=== PATIENT | female | born 1975 | race Caucasian/White ===

== ENCOUNTER 2017-01-24 12:05 | Emergency (ER) | payer MEDICARE, MEDICAID ==
[2017-01-24 12:25] VITALS: BP 143/102
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
== END 2017-01-24 16:35 | disposition home or self-care (01) ==
LOC: JP.ED 12:05
DX: F31.9 Bipolar disorder, unspecified (principal); F41.9 Anxiety disorder, unspecified; F19.10 Other psychoactive substance abuse, uncomplicated; I10 Essential (primary) hypertension; J45.909 Unspecified asthma, uncomplicated; J44.9 Chronic obstructive pulmonary disease, unspecified; F17.210 Nicotine dependence, cigarettes, uncomplicated; Z88.1 Allergy status to other antibiotic agents; Z88.8 Allergy status to other drugs, medicaments and biological substances; Z88.2 Allergy status to sulfonamides; Z88.5 Allergy status to narcotic agent; Z79.899 Other long term (current) drug therapy; Z90.49 Acquired absence of other specified parts of digestive tract; Z98.890 Other specified postprocedural states
CPT/HCPCS: 99283; 99284

== ENCOUNTER 2017-02-16 13:15 | Emergency (ER) | payer MEDICARE, MEDICAID ==
[2017-02-16 13:43] VITALS: BP 146/94
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
--- NOTE | 2017-02-17 09:23 | CR ---
Chest 2V FINDINGS: The heart and vascular structures are normal in appearance. No infiltrates or effusions ar e demonstrated. The skeletal structures are unremarkable. IMPRESSION: Negative exam.
== END 2017-02-16 15:22 | disposition home or self-care (01) ==
LOC: JP.ED 13:15
DX: J40 Bronchitis, not specified as acute or chronic (principal); R11.2 Nausea with vomiting, unspecified; I10 Essential (primary) hypertension; J44.9 Chronic obstructive pulmonary disease, unspecified; F41.9 Anxiety disorder, unspecified; F32.9 Major depressive disorder, single episode, unspecified; F17.210 Nicotine dependence, cigarettes, uncomplicated; Z98.890 Other specified postprocedural states; Z90.49 Acquired absence of other specified parts of digestive tract; Z79.899 Other long term (current) drug therapy; Z88.2 Allergy status to sulfonamides; Z88.1 Allergy status to other antibiotic agents; Z88.8 Allergy status to other drugs, medicaments and biological substances
CPT/HCPCS: 36415; 71020; 71020-26; 80048; 85025; 87804; 99283; 99284

== ENCOUNTER 2017-08-06 15:06 | Emergency (ER) | payer MEDICARE, MEDICAID ==
[2017-08-06 15:42] VITALS: BP 111/73
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
== END 2017-08-06 16:54 | disposition left against medical advice (07) ==
LOC: JP.ED 15:06
DX: Z53.21 Procedure and treatment not carried out due to patient leaving prior to being seen by health care provider (principal)
CPT/HCPCS: 99281

== ENCOUNTER 2017-08-22 14:12 | Emergency (ER) | payer MEDICARE, MEDICAID ==
[2017-08-22 14:36] VITALS: BP 161/113
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
== END 2017-08-22 17:49 | disposition home or self-care (01) ==
LOC: JP.ED 14:12
DX: F41.8 Other specified anxiety disorders (principal); F10.10 Alcohol abuse, uncomplicated; Y90.0 Blood alcohol level of less than 20 mg/100 ml; Z88.1 Allergy status to other antibiotic agents; Z88.8 Allergy status to other drugs, medicaments and biological substances; Z88.2 Allergy status to sulfonamides; Z79.899 Other long term (current) drug therapy
CPT/HCPCS: 36415; 80048; 80305; 81001; 85025; 99284; G0480; 99283

== ENCOUNTER 2017-10-22 12:15 | Emergency (ER) | payer MEDICARE, MEDICAID ==
[2017-10-22 12:38] VITALS: BP 174/126
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
[2017-10-22] MEDS ORDERED: Iopamidol 612 MG/ML 100 ML Bottle IV PRN (13:40)
[2017-10-22] MEDS ORDERED: Sodium Chloride 0.9% 10 ML Syringe FLUSH PRN (13:40)
[2017-10-22] MEDS ORDERED: Sodium Chloride 0.9% 100 ML IV SCH (13:45)
== END 2017-10-22 16:54 | disposition home or self-care (01) ==
LOC: JP.ED 12:15
DX: K52.9 Noninfective gastroenteritis and colitis, unspecified (principal); I10 Essential (primary) hypertension; M32.9 Systemic lupus erythematosus, unspecified; Z88.1 Allergy status to other antibiotic agents; Z88.8 Allergy status to other drugs, medicaments and biological substances; Z88.2 Allergy status to sulfonamides; Z90.49 Acquired absence of other specified parts of digestive tract; Z79.899 Other long term (current) drug therapy
CPT/HCPCS: 36415; 74177; 80053; 80305; 81001; 82150; 83690; 85025; 99283; 99284; J7030; J7050; Q9967

== ENCOUNTER 2017-11-17 10:50 | Inpatient (IN) | payer MEDICARE, MEDICAID ==
[2017-11-17] MEDS ORDERED: Ondansetron 4 MG/2 ML SDV IVPUSH ONE (10:55)
[2017-11-17] MEDS ORDERED: Sodium Chloride 0.9% 1,000 ML IV SCH ×3 (11:00→15:25)
[2017-11-17] MEDS ORDERED: Nicotine 21 MG/24 Hr Patch TRDERM ONE (11:38)
[2017-11-17] MEDS ORDERED: LORazepam 2 MG/ML SDV IVPUSH ONE ×2 (11:39→12:07)
[2017-11-17] MEDS ORDERED: LORazepam 2 MG/ML SDV ONE (12:01)
[2017-11-17] MEDS: LORazepam 2 MG/ML SDV IVPUSH ONE ×2 (13:06→16:32)
[2017-11-17] MEDS ORDERED: LORazepam 1 MG Tab PO ONE (14:07)
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
[2017-11-17] MEDS ORDERED: cloNIDine 0.1 MG Tab PO ONE (14:10)
[2017-11-17] MEDS ORDERED: Rizatriptan 10 MG Tab.DIS PO PRN (15:25)
[2017-11-17] MEDS ORDERED: Acetaminophen 325 MG Tab PO PRN (15:25)
[2017-11-17] MEDS ORDERED: Loratadine 10 MG Tab PO PRN (15:25)
[2017-11-17] MEDS ORDERED: Nicotine 10 MG/Cartridge Inhaler 168 Cartridges/Box INH PRN (15:25)
[2017-11-17] MEDS ORDERED: LORazepam 2 MG/ML SDV IV SCH (15:25)
[2017-11-17] MEDS ORDERED: Sodium Chloride 0.9% 10 ML Syringe FLUSH PRN (15:25)
[2017-11-17] MEDS ORDERED: Magnesium Hydroxide 400 MG/5 ML Susp 30 ML Cup PO PRN (15:25)
[2017-11-17] MEDS ORDERED: LINZESS 145 MG PO SCH (15:25)
[2017-11-17] MEDS ORDERED: Ondansetron 4 MG/2 ML SDV IV PRN (15:25)
[2017-11-17] MEDS ORDERED: OXCARBAZEPINE PO SCH (15:25)
[2017-11-17] MEDS ORDERED: Polyethylene Glycol 3350 Powder 17 GM Packet PO PRN (15:25)
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
[2017-11-17] MEDS: LORazepam 1 MG Tab PO SCH (15:41)
[2017-11-17] MEDS ORDERED: Zolpidem 5 MG Tab PO PRN (15:42)
[2017-11-17] MEDS ORDERED: Potassium Chloride 20 MEQ Tab.ER PO ONE (16:00)
[2017-11-17] MEDS ORDERED: MVI, Adult with Vitamin K 10 ML, Thiamine 100 MG, Folic Acid 1 MG, Magnesium Sulfate 2 ... IV ONE ×5 (16:00)
[2017-11-17] MEDS ORDERED: Enoxaparin 40 MG/0.4 ML Syringe SUBCUT SCH (16:00)
[2017-11-17] MEDS: Nicotine 21 MG/24 Hr Patch TRDERM SCH (16:34)
[2017-11-17] MEDS: Pantoprazole 40 MG Tab.CR PO SCH (16:47)
[2017-11-17] MEDS: Folic Acid 1 MG Tab PO SCH (16:47)
[2017-11-17] MEDS: Thiamine 100 MG Tab PO SCH (16:47)
[2017-11-17] MEDS: Hydroxychloroquine 200 MG Tab PO SCH (16:47)
[2017-11-17] MEDS: cloNIDine 0.1 MG Tab PO SCH (20:54)
[2017-11-17] MEDS: tiZANidine 4 MG Tab PO SCH (20:55)
[2017-11-17] MEDS: OXcarbazepine 300 MG Tab PO SCH (20:55)
[2017-11-17] MEDS: Gabapentin 400 MG Cap PO SCH (20:55)
[2017-11-17] MEDS: ClonazePAM 1 MG Tab PO SCH (20:55)
[2017-11-17] MEDS ORDERED: Lithium Carbonate 300 MG Tab.ER PO SCH (21:00)
[2017-11-18] MEDS: Pantoprazole 40 MG Tab.CR PO SCH (08:30)
[2017-11-18] MEDS: cloNIDine 0.1 MG Tab PO SCH (08:31)
[2017-11-18] MEDS: Gabapentin 400 MG Cap PO SCH ×2 (08:32→13:53)
[2017-11-18] MEDS: Nicotine 21 MG/24 Hr Patch TRDERM SCH (08:32)
[2017-11-18] MEDS: Folic Acid 1 MG Tab PO SCH (08:32)
[2017-11-18] MEDS: Hydroxychloroquine 200 MG Tab PO SCH (08:33)
[2017-11-18] MEDS: OXcarbazepine 300 MG Tab PO SCH (08:33)
[2017-11-18] MEDS: Thiamine 100 MG Tab PO SCH (08:34)
[2017-11-18] MEDS: tiZANidine 4 MG Tab PO SCH ×2 (08:34→13:53)
[2017-11-18] MEDS: ClonazePAM 1 MG Tab PO SCH (08:39)
--- NOTE | 2017-11-18 08:49 | PCM.PN ---
- General Info Date of Service: 11/18/17 Subjective Update: Ms. Harkins has been stable since admission with no evidence of significant alcohol withdrawal. It does appear likely that her symptoms that she was experiencing yesterday were secondary to not having taken her psychiatric meds. She is fairly comfortable this morning and certainly not agitated. Functional Status: Reports: Tolerating Diet, Urinating - Review of Systems General: Denies: Fever, Weakness, Chills Pulmonary: Reports: No Symptoms Cardiovascular: Reports: No Symptoms Gastrointestinal: Reports: No Symptoms - Patient Data Vitals - Most Recent: Last Vital Signs Temp 98 F 11/18/17 04:00 Pulse 88 11/17/17 18:00 Resp 21 H 11/18/17 06:00 BP 131/81 11/18/17 08:31 Pulse Ox 95 11/18/17 06:00 Weight - Most Recent: 106 lb 14.787 oz I&O - Last 24 Hours: Intake & Output 11/17/17 11/18/17 11/18/17 22:59 06:59 14:59 Intake Total 240 1852 Output Total 1250 300 Balance -1010 1552 Lab Results Last 24 Hours: Laboratory Results - last 24 hr 11/17/17 11/18/17 11/18/17 Range/Units 15:25 05:52 05:52 WBC 6.9 (4.5-11.0) K/uL RBC 3.73 (3.30-5.50) M/uL Hgb 11.1 L D (12.0-15.0) g/dL Hct 34.3 L (36.0-48.0) % MCV 92 (80-98) fL MCH 30 (27-31) pg MCHC 32 (32-36) % Plt Count 198 (150-400) K/uL Neut % (Auto) 53 (36-66) % Lymph % (Auto) 34 (24-44) % [place] % (Auto) 10 H (2-6) % Eos % (Auto) 3 (2-4) % Baso % (Auto) 1 (0-1) % Sodium 143 (140-148) mmol/L Potassium 4.1 (3.6-5.2) mmol/L Chloride 114 H (100-108) mmol/L Carbon Dioxide 21 (21-32) mmol/L Anion Gap 12.1 (5.0-14.0) mmol/L BUN 10 D (7-18) mg/dL Creatinine 0.6 (0.6-1.0) mg/dL Est Cr Clr Drug Dosing 88.63 mL/min Estimated GFR (MDRD) > 60 (>60) Glucose 142 H (74-106) mg/dL Calcium 7.9 L (8.5-10.1) mg/dL HCG, Qual Negative Med Orders - Current: Current Medications Acetaminophen (Tylenol) 650 mg PO Q4H PRN PRN Reason: Pain (Mild 1-3)/fever Clonazepam (Klonopin) 1 mg PO BID [facility] Last Admin: 11/18/17 08:39 Dose: 1 mg Clonidine HCl (Catapres) 0.2 mg PO BID [facility] Last Admin: 11/18/17 08:31 Dose: 0.2 mg Enoxaparin Sodium (Lovenox) 40 mg SUBCUT Q24H [facility] Last Admin: 11/17/17 16:46 Dose: 40 mg Folic Acid (Folic Acid) 1 mg PO DAILY [facility] Last Admin: 11/18/17 08:32 Dose: 1 mg Gabapentin (Neurontin) 400 mg PO TID [facility] Last Admin: 11/18/17 08:32 Dose: 400 mg Hydroxychloroquine Sulfate (Plaquenil) 200 mg PO DAILY [facility] Last Admin: 11/18/17 08:33 Dose: 200 mg [place] Carbonate (Lithobid) 600 mg PO BEDTIME [facility] Last Admin: 11/17/17 20:55 Dose: 600 mg Loratadine (Claritin) 10 mg PO DAILY PRN PRN Reason: MIGRAINE Lorazepam (Ativan) 0 mg IV ASDIRECTED [facility] PRN Reason: Protocol Lorazepam (Ativan) 0 mg PO ASDIRECTED [facility] PRN Reason: Protocol Last Admin: 11/17/17 15:41 Dose: 2 mg Magnesium Hydroxide (Milk Of Magnesia) 30 ml PO Q12H PRN PRN Reason: Constipation Nicotine (Habitrol) 21 mg TRDERM DAILY [facility] Last Admin: 11/18/17 08:32 Dose: 21 mg Nicotine (Nicotrol) 10 mg INH Q1H PRN PRN Reason: Other Last Admin: 11/17/17 20:10 Dose: 10 mg Ondansetron HCl (Zofran) 4 mg IV Q4H PRN PRN Reason: Nausea/Vomiting Oxcarbazepine (Trileptal) 450 mg PO BID [facility] Last Admin: 11/18/17 08:33 Dose: 450 mg Pantoprazole Sodium (Protonix) 40 mg PO BIDAC [facility] Last Admin: 11/18/17 08:30 Dose: 40 mg Linzess 145mcg (Ptom ()) 0 each PO DAILY [facility] Last Admin: 11/18/17 08:33 Dose: 1 each Polyethylene Glycol (Miralax) 17 gm PO DAILY PRN PRN Reason: Constipation Rizatriptan Benzoate (Maxalt Block Hand) 10 mg PO DAILY PRN PRN Reason: MIGRAINE Last Admin: 11/17/17 19:10 Dose: 10 mg Senna/Docusate Sodium (Senna Plus) 1 tab PO BID PRN PRN Reason: Constipation Sodium Chloride (Saline Flush) 10 ml FLUSH ASDIRECTED PRN PRN Reason: Keep Vein Open Tamsulosin HCl (Flomax) 0.4 mg PO DAILY [facility] Last Admin: 11/18/17 08:31 Dose: 0.4 mg Thiamine HCl (Vitamin B-1) 100 mg PO DAILY [facility] Last Admin: 11/18/17 08:34 Dose: 100 mg Tizanidine HCl (Zanaflex) 4 mg PO TID [facility] Last Admin: 11/18/17 08:34 Dose: 4 mg Zolpidem Tartrate (Ambien) 10 mg PO BEDTIME PRN PRN Reason: Sleep Last Admin: 11/17/17 20:54 Dose: 10 mg Discontinued Medications Clonidine HCl (Catapres) 0.1 mg PO ONETIME ONE Stop: 11/17/17 14:11 Last Admin: 11/17/17 14:53 Dose: 0.1 mg Sodium Chloride (Normal Saline) 1,000 mls @ 999 mls/hr IV ASDIRECTED [facility] Last Admin: 11/17/17 11:39 Dose: 999 mls/hr Sodium Chloride (Normal Saline) 1,000 mls @ 999 mls/hr IV ASDIRECTED [facility] Last Admin: 11/17/17 12:46 Dose: 999 mls/hr Multivitamins/Minerals 10 ml/Thiamine HCl 100 mg/ Folic Acid 1 mg/ Magnesium Sulfate 2 gm/ Sodium Chloride 1,015.2 mls @ 100 mls/hr IV ONETIME ONE Stop: 11/18/17 02:09 Last Admin: 11/17/17 16:41 Dose: 100 mls/hr Sodium Chloride (Normal Saline) 1,000 mls @ 125 mls/hr IV ASDIRECTED [facility] Last Admin: 11/18/17 02:47 Dose: 125 mls/hr Lorazepam (Ativan) 0.5 mg IVPUSH ONETIME ONE Stop: 11/17/17 11:40 Last Admin: 11/17/17 12:06 Dose: 0.5 mg Lorazepam (Ativan) 0.5 mg IVPUSH ONETIME ONE Stop: 11/17/17 12:08 Last Admin: 11/17/17 12:10 Dose: 0.5 mg Lorazepam (Ativan) 1 mg IVPUSH ONETIME ONE Stop: 11/17/17 12:58 Last Admin: 11/17/17 16:32 Dose: Not Given Lorazepam (Ativan) 1 mg PO ONETIME ONE Stop: 11/17/17 14:08 Last Admin: 11/17/17 14:53 Dose: 1 mg Nicotine (Habitrol) 21 mg TRDERM ONETIME ONE Stop: 11/17/17 11:39 Last Admin: 11/17/17 12:07 Dose: 21 mg Linzess 145 Mg Own (Med) 0 mcg PO DAILY [facility] Last Admin: 11/17/17 19:09 Dose: 145 mcg Ondansetron HCl (Zofran) 4 mg IVPUSH ONETIME ONE Stop: 11/17/17 10:56 Last Admin: 11/17/17 11:39 Dose: 4 mg Potassium Chloride (Klor-Con M20) 40 meq PO ONETIME ONE Stop: 11/17/17 16:01 Last Admin: 11/17/17 16:46 Dose: 40 meq - Exam Quality Assessment: DVT Prophylaxis General: Alert, Oriented, Cooperative, No Acute Distress Lungs: Clear to Auscultation, Normal Respiratory Effort Cardiovascular: Regular Rate, Regular Rhythm, No Murmurs GI/Abdominal Exam: Soft, Non-Tender, No Organomegaly, No Distention Extremities: Non-Tender, No Pedal Edema Skin: Warm, Dry, Intact - Problem List Review Problem List Initiated/Reviewed/Updated: Yes - My Orders Last 24 Hours: My Active Orders 11/17/17 14:05 Resuscitation Status Routine 11/17/17 15:25 Patient Status [ADT] Routine Ambulate [RC] QID CIWAA Assessment [RC] Q4H Cardiac Monitoring [RC] Q6H Height and Weight [RC] DAILY Intake and Output [RC] QSHIFT Notify Provider Vital Signs [RC] ASDIRECTED Notify Provider [RC] PRN Oxygen Therapy [RC] PRN Peripheral IV Care [RC] Q6HR Pulse Oximetry [RC] CONTINUOUS Up With Assistance [RC] ASDIRECTED Up to Chair [RC] QID Vital Signs [RC] Q2H *Benztropine Mesylate Or DOSE UNIT RTE FREQ Acetaminophen [Tylenol] 650 mg PO Q4H PRN Aspirin DOSE UNIT RTE FREQ Docusate Sodium/Sennosides [Senna Plus] 1 tab PO BID PRN Folic Acid 1 mg PO DAILY Hydroxychloroquine [Plaquenil] 200 mg PO DAILY LORazepam [Ativan] See Protocol IV ASDIRECTED LORazepam [Ativan] See Protocol PO ASDIRECTED Loratadine [Claritin] 10 mg PO DAILY PRN Magnesium Hydroxide [Milk of Magnesia] 30 ml PO Q12H PRN Nicotine [Nicotrol] 10 mg INH Q1H PRN Ondansetron [Zofran] 4 mg IV Q4H PRN Polyethylene Glycol 3350 [MiraLAX] 17 gm PO DAILY PRN Rizatriptan [[place] [employer]] 10 mg PO DAILY PRN Sodium Chloride 0.9% [Saline Flush] 10 ml FLUSH ASDIRECTED PRN Thiamine [Vitamin B-1] 100 mg PO DAILY atorvaSTATin [Lipitor] DOSE UNIT RTE FREQ Peripheral IV Insertion Adult [OM.PC] Routine 11/17/17 15:42 Zolpidem [Ambien] 10 mg PO BEDTIME PRN 11/17/17 16:00 Enoxaparin [Lovenox] 40 mg SUBCUT Q24H Nicotine [Habitrol] 21 mg TRDERM DAILY Sucralfate [Carafate] DOSE UNIT RTE FREQ 11/17/17 16:30 Pantoprazole [ProTONIX] 40 mg PO BIDAC 11/17/17 21:00 ClonazePAM [KlonoPIN] 1 mg PO BID Gabapentin [Neurontin] 400 mg PO TID [place] Carbonate [Lithobid] 600 mg PO BEDTIME OXcarbazepine [Trileptal] 450 mg PO BID cloNIDine [Catapres] 0.2 mg PO BID tiZANidine [Zanaflex] 4 mg PO TID 11/17/17 Lunch Regular Diet [DIET] 11/18/17 08:43 Convert IV to Saline Lock [OM.PC] Routine 11/18/17 09:00 Patient's Own Medication [Ptom] 0 each PO DAILY Tamsulosin [Flomax] 0.4 mg PO DAILY - Plan Plan:: ASSESSMENT AND PLAN AGITATION-brought in by family because of agitation with nausea vomiting. Epigastric pain with nausea vomiting likely secondary to recent alcohol use. No significant evidence of alcohol withdrawal since admission, agitation has resolved -Resume usual anti-psychotic meds -Saline lock IV -Protonix 40 mg by mouth twice a day Pressure under much better control now that she is back on usual medications -Resume usual outpatient regimen for hypertension and cardiac disease SMALL VESSEL CORONARY ARTERY DISEASE-she's still in the process of further evaluation is recommended by cardiology. No symptoms of chest pain since admission. -Resume outpatient medical therapy NICOTINE DEPENDENCE -21 mg nicotinic patch daily -Nicotine inhaler as needed SCHIZOPHRENIA -Resume usual medical therapy as above MAINTENANCE ISSUES -DVT prophylaxis; Lovenox 40 mg subcutaneous daily -GI prophylaxis; Protonix as above -Ball catheter; not indicated -Nutrition; regular diet -Nicotine dependence; as above CODE STATUS-FULL CODE ADMISSION STATUS-patient will be admitted to inpatient status, expect at least a 2 night hospital stay for evaluation and management of problems as outlined above. At the time of this admission I do not reasonably expected evaluation and management of this problem will require more than a 96 hour hospital stay. DISPOSITION-anticipate discharge to home or residential facility later today PRIMARY CARE PROVIDER-Dr. Saavedra
[2017-11-18] MEDS ORDERED: LINZESS 145 MCG PO SCH (09:00)
[2017-11-18] MEDS ORDERED: Non-Formulary Medication 1 Each (Omeprazole [Omeprazole] 20 MG) PO SCH (09:00)
[2017-11-18] MEDS ORDERED: Tamsulosin 0.4 MG Cap.ER PO SCH (09:00)
--- NOTE | 2017-11-18 11:22 | PCM.DCSUM1 ---
Discharge Summary - Hospital Course Brief History: And is a 42-year-old woman with a long-standing history of psychiatric disease as well as substance abuse. She was admitted through the emergency department because of agitation and suspected alcohol withdrawal. - Discharge Data Discharge Date: 11/18/17 Discharge Disposition: Home, Self-Care 01 Condition: Good - Discharge Diagnosis/Problem(s) (1) History of alcohol abuse SNOMED Code(s): 982560605 ICD Code: Z87.898 - PERSONAL HISTORY OF OTHER SPECIFIED CONDITIONS Status: Acute Current Visit: Yes (2) Bipolar disorder SNOMED Code(s): 94803268 ICD Code: F31.9 - BIPOLAR DISORDER, UNSPECIFIED Status: Chronic Current Visit: No (3) Psychotic disorder SNOMED Code(s): 44762611 ICD Code: F29 - UNSP PSYCHOSIS NOT DUE TO A SUBSTANCE OR KNOWN PHYSIOL COND Status: Chronic Current Visit: No - Patient Summary/Data Hospital Course: And is a 42-year-old woman who developed increased agitation, she was brought into the emergency department by family for further evaluation. She has a known and long-standing history of substance abuse, recently completed alcohol treatment and was discharged to home in September. She was abstinent from alcohol and drugs for approximately 2 weeks but then over the last 2 weeks has been using alcohol on an intermittent basis. She also is had some medical problems and recent evaluation for symptoms of chest pain, after angiogram she is felt to have probable small vessel coronary artery disease but is still undergoing further evaluation. She did experience some transient chest pain while being evaluated in the emergency department EKG showed no evidence of acute ST segment changes and troponin level was normal. On admission it was felt likely that she was experiencing a component of alcohol withdrawal, this did not progress. She had not been taking her lithium for about a week and a half and had been off of her other psychiatric medications for 2 days. After she was placed back on her medication she improved significantly with no further agitation. She is felt to be safe for discharge back to home and is encouraged to continue to take her usual medications. Follow-up appointment will be scheduled with her primary care provider within one week. registered nurse surgical services has been contacted and she has an appointment for Tuesday evening to explore the possibility of admission to a residential facility. - Patient Instructions Diet: Usual Diet as Tolerated Activity: As Tolerated Other/Special Instructions: Please schedule follow-up appointment with primary care provider within one week. Patient has appointment on the evening of TuesdayNovember 21 for assessment for possible admission to resident treatment facility. - Discharge Plan Home Medications: Home Meds [place] Carbonate [Lithobid] 600 mg PO BEDTIME 11/02/13 [History] Hydroxychloroquine Sulfate [Plaquenil] 200 mg PO DAILY 09/24/14 [History] ClonazePAM [KlonoPIN] 1 mg PO BID 07/22/15 [History] Gabapentin [Neurontin] 400 mg PO TID 07/22/15 [History] Tamsulosin HCl 0.4 mg PO DAILY 07/22/15 [History] cloNIDine HCl [Catapres] 0.2 mg PO BID 02/13/16 [History] Rizatriptan Benzoate [Rizatriptan] 1 tab PO ASDIRECTED 10/12/16 [History] Zolpidem Tartrate [Ambien] 1 tab PO BEDTIME PRN 10/12/16 [History] Polyethylene Glycol 3350 [Miralax] 1 capful PO BID PRN 10/22/17 [History] *Benztropine Mesylate Or 11/17/17 [History] *Lidocaine Gel 11/17/17 [History] *Multivitamin 11/17/17 [History] *Mupirocin 11/17/17 [History] Aspirin 81 mg 11/17/17 [History] Linaclotide [Linzess] 145 mcg PO DAILY 11/17/17 [History] Loratadine [Claritin] 10 mg PO DAILY PRN 11/17/17 [History] OXcarbazepine [Oxcarbazepine] 450 mg PO BID 11/17/17 [History] Omeprazole 20 mg PO DAILY 11/17/17 [History] Promethazine [Phenergan] 25 mg PO TID PRN 11/17/17 [History] Rizatriptan [Maxalt] 10 mg PO DAILY PRN 11/17/17 [History] Sucralfate [Carafate] 1 gm PO QID 11/17/17 [History] atorvaSTATin [Lipitor] 11/17/17 [History] tiZANidine [Zanaflex] 4 mg PO TID 11/17/17 [History] Referrals: Estelle Saavedra MD [Primary Care Provider] - - Patient Data Vitals - Most Recent: Last Vital Signs Temp 98.1 F 11/18/17 08:00 Pulse 88 11/17/17 18:00 Resp 12 11/18/17 10:00 BP 85/50 L 11/18/17 10:00 Pulse Ox 99 11/18/17 10:00 Weight - Most Recent: 107 lb I&O - Last 24 hours: Intake & Output 11/17/17 11/18/17 11/18/17 22:59 06:59 14:59 Intake Total 240 1852 Output Total 1250 300 Balance -1010 1552 Lab Results - Last 24 hrs: Laboratory Results - last 24 hr 11/17/17 11/18/17 11/18/17 Range/Units 15:25 05:52 05:52 WBC 6.9 (4.5-11.0) K/uL RBC 3.73 (3.30-5.50) M/uL Hgb 11.1 L D (12.0-15.0) g/dL Hct 34.3 L (36.0-48.0) % MCV 92 (80-98) fL MCH 30 (27-31) pg MCHC 32 (32-36) % Plt Count 198 (150-400) K/uL Neut % (Auto) 53 (36-66) % Lymph % (Auto) 34 (24-44) % [place] % (Auto) 10 H (2-6) % Eos % (Auto) 3 (2-4) % Baso % (Auto) 1 (0-1) % Sodium 143 (140-148) mmol/L Potassium 4.1 (3.6-5.2) mmol/L Chloride 114 H (100-108) mmol/L Carbon Dioxide 21 (21-32) mmol/L Anion Gap 12.1 (5.0-14.0) mmol/L BUN 10 D (7-18) mg/dL Creatinine 0.6 (0.6-1.0) mg/dL Est Cr Clr Drug Dosing 88.63 mL/min Estimated GFR (MDRD) > 60 (>60) Glucose 142 H (74-106) mg/dL Calcium 7.9 L (8.5-10.1) mg/dL HCG, Qual Negative Med Orders - Current: Current Medications Acetaminophen (Tylenol) 650 mg PO Q4H PRN PRN Reason: Pain (Mild 1-3)/fever Clonazepam (Klonopin) 1 mg PO BID [facility] Last Admin: 11/18/17 08:39 Dose: 1 mg Clonidine HCl (Catapres) 0.2 mg PO BID [facility] Last Admin: 11/18/17 08:31 Dose: 0.2 mg Enoxaparin Sodium (Lovenox) 40 mg SUBCUT Q24H [facility] Last Admin: 11/17/17 16:46 Dose: 40 mg Folic Acid (Folic Acid) 1 mg PO DAILY [facility] Last Admin: 11/18/17 08:32 Dose: 1 mg Gabapentin (Neurontin) 400 mg PO TID [facility] Last Admin: 11/18/17 08:32 Dose: 400 mg Hydroxychloroquine Sulfate (Plaquenil) 200 mg PO DAILY [facility] Last Admin: 11/18/17 08:33 Dose: 200 mg [place] Carbonate (Lithobid) 600 mg PO BEDTIME [facility] Last Admin: 11/17/17 20:55 Dose: 600 mg Loratadine (Claritin) 10 mg PO DAILY PRN PRN Reason: MIGRAINE Lorazepam (Ativan) 0 mg IV ASDIRECTED [facility] PRN Reason: Protocol Lorazepam (Ativan) 0 mg PO ASDIRECTED [facility] PRN Reason: Protocol Last Admin: 11/17/17 15:41 Dose: 2 mg Magnesium Hydroxide (Milk Of Magnesia) 30 ml PO Q12H PRN PRN Reason: Constipation Nicotine (Habitrol) 21 mg TRDERM DAILY [facility] Last Admin: 11/18/17 08:32 Dose: 21 mg Nicotine (Nicotrol) 10 mg INH Q1H PRN PRN Reason: Other Last Admin: 11/17/17 20:10 Dose: 10 mg Ondansetron HCl (Zofran) 4 mg IV Q4H PRN PRN Reason: Nausea/Vomiting Oxcarbazepine (Trileptal) 450 mg PO BID [facility] Last Admin: 11/18/17 08:33 Dose: 450 mg [facility] Last Admin: 11/18/17 08:30 Dose: 40 mg Linzess 145mcg (Ptom ()) 0 each PO DAILY [facility] Last Admin: 11/18/17 08:33 Dose: 1 each Polyethylene Glycol (Miralax) 17 gm PO DAILY PRN PRN Reason: Constipation Rizatriptan Benzoate (Maxalt [employer]') 10 mg PO DAILY PRN PRN Reason: MIGRAINE Last Admin: 11/17/17 19:10 Dose: 10 mg Senna/Docusate Sodium (Senna Plus) 1 tab PO BID PRN PRN Reason: Constipation Sodium Chloride (Saline Flush) 10 ml FLUSH ASDIRECTED PRN PRN Reason: Keep Vein Open Tamsulosin HCl (Flomax) 0.4 mg PO DAILY [facility] Last Admin: 11/18/17 08:31 Dose: 0.4 mg Thiamine HCl (Vitamin B-1) 100 mg PO DAILY [facility] Last Admin: 11/18/17 08:34 Dose: 100 mg Tizanidine HCl (Zanaflex) 4 mg PO TID [facility] Last Admin: 11/18/17 08:34 Dose: 4 mg Zolpidem Tartrate (Ambien) 10 mg PO BEDTIME PRN PRN Reason: Sleep Last Admin: 11/17/17 20:54 Dose: 10 mg Discontinued Medications Clonidine HCl (Catapres) 0.1 mg PO ONETIME ONE Stop: 11/17/17 14:11 Last Admin: 11/17/17 14:53 Dose: 0.1 mg Sodium Chloride (Normal Saline) 1,000 mls @ 999 mls/hr IV ASDIRECTED [facility] Last Admin: 11/17/17 11:39 Dose: 999 mls/hr Sodium Chloride (Normal Saline) 1,000 mls @ 999 mls/hr IV ASDIRECTED [facility] Last Admin: 11/17/17 12:46 Dose: 999 mls/hr Multivitamins/Minerals 10 ml/Thiamine HCl 100 mg/ Folic Acid 1 mg/ Magnesium Sulfate 2 gm/ Sodium Chloride 1,015.2 mls @ 100 mls/hr IV ONETIME ONE Stop: 11/18/17 02:09 Last Admin: 11/17/17 16:41 Dose: 100 mls/hr Sodium Chloride (Normal Saline) 1,000 mls @ 125 mls/hr IV ASDIRECTED [facility] Last Admin: 11/18/17 02:47 Dose: 125 mls/hr Lorazepam (Ativan) 0.5 mg IVPUSH ONETIME ONE Stop: 11/17/17 11:40 Last Admin: 11/17/17 12:06 Dose: 0.5 mg Lorazepam (Ativan) 0.5 mg IVPUSH ONETIME ONE Stop: 11/17/17 12:08 Last Admin: 11/17/17 12:10 Dose: 0.5 mg Lorazepam (Ativan) 1 mg IVPUSH ONETIME ONE Stop: 11/17/17 12:58 Last Admin: 11/17/17 16:32 Dose: Not Given Lorazepam (Ativan) 1 mg PO ONETIME ONE Stop: 11/17/17 14:08 Last Admin: 11/17/17 14:53 Dose: 1 mg Nicotine (Habitrol) 21 mg TRDERM ONETIME ONE Stop: 11/17/17 11:39 Last Admin: 11/17/17 12:07 Dose: 21 mg Linzess 145 Mg Own (Med) 0 mcg PO DAILY [facility] Last Admin: 11/17/17 19:09 Dose: 145 mcg Ondansetron HCl (Zofran) 4 mg IVPUSH ONETIME ONE Stop: 11/17/17 10:56 Last Admin: 11/17/17 11:39 Dose: 4 mg Potassium Chloride (Klor-Con M20) 40 meq PO ONETIME ONE Stop: 11/17/17 16:01 Last Admin: 11/17/17 16:46 Dose: 40 meq *Q Meaningful Use (DIS) - VTE *Q VTE Criteria *Q: - Stroke *Q Stroke Criteria *Q: - AMI *Q AMI Criteria *Q:
[2017-11-18 12:49] VITALS: BP 98/57
[2017-11-18] MEDS: LORazepam 1 MG Tab PO SCH (13:57)
== END 2017-11-18 14:39 | disposition home or self-care (01) | DRG 885 ==
LOC: JP.ED 10:50 → JP.ICU 14:01
PROVIDERS: ADMIT Hospitalist; ATTEND Hospitalist
DX: F29 Unspecified psychosis not due to a substance or known physiological condition (principal); Z87.898 Personal history of other specified conditions; M32.9 Systemic lupus erythematosus, unspecified; F31.9 Bipolar disorder, unspecified; R07.9 Chest pain, unspecified; F20.9 Schizophrenia, unspecified; F19.10 Other psychoactive substance abuse, uncomplicated; I10 Essential (primary) hypertension; F17.210 Nicotine dependence, cigarettes, uncomplicated; F06.8 Other specified mental disorders due to known physiological condition; R11.2 Nausea with vomiting, unspecified; R45.1 Restlessness and agitation; F41.9 Anxiety disorder, unspecified; Z87.11 Personal history of peptic ulcer disease; Z91.5 Personal history of self-harm; G43.909 Migraine, unspecified, not intractable, without status migrainosus; Z79.82 Long term (current) use of aspirin; Z88.1 Allergy status to other antibiotic agents; Z88.2 Allergy status to sulfonamides; Z88.8 Allergy status to other drugs, medicaments and biological substances; Z79.899 Other long term (current) drug therapy; R33.9 Retention of urine, unspecified
CPT/HCPCS: 96361; 99285; 96374; 96375; 93005; 99284; 93010; 85025; 85730; 81001; 36415; 80053; 84484; 87086; 80305; 80178; J2060 ×3; A9270; J7040 ×2; J2405; G0480; 80048; 84703; J1650; J3411; J3475; J3490; J7030

== ENCOUNTER 2017-11-21 13:39 | Emergency (ER) | payer MEDICARE, MEDICAID ==
[2017-11-21 14:10] VITALS: BP 188/94
[2017-11-21] MEDS ORDERED: Sodium Chloride 0.9% 10 ML Syringe FLUSH PRN (14:44)
[2017-11-21] MEDS ORDERED: Sodium Chloride 0.9% 1,000 ML IV SCH (14:45)
[2017-11-21] MEDS ORDERED: Ondansetron 4 MG/2 ML SDV IVPUSH ONE (14:47)
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
[2017-11-21] MEDS ORDERED: Scopolamine 1.5 MG Transdermal Patch TRDERM PRN (15:38)
[2017-11-21] MEDS ORDERED: Meclizine 25 MG Tab PO ONE (15:38)
[2017-11-21] MEDS ORDERED: Potassium Chloride 20 MEQ Tab.ER PO ONE (15:50)
[2017-11-21] MEDS ORDERED: Potassium Chloride 20 MEQ in Premix Bag 1 BAG IV ONE (15:50)
[2017-11-21] MEDS ORDERED: Potassium Chloride 20 MEQ, Lidocaine 1% 2 ML in Sodium Chloride 0.9% 100 ML IV ONE (16:15)
[2017-11-21] MEDS ORDERED: ClonazePAM 1 MG Tab PO STA (16:57)
== END 2017-11-21 18:35 | disposition home or self-care (01) ==
LOC: JP.ED 13:39
DX: R42 Dizziness and giddiness (principal); I10 Essential (primary) hypertension; Z88.1 Allergy status to other antibiotic agents; Z88.8 Allergy status to other drugs, medicaments and biological substances; Z88.2 Allergy status to sulfonamides; Z79.82 Long term (current) use of aspirin; Z72.0 Tobacco use
CPT/HCPCS: 36415; 80053; 80305; 81001; 85025; 87086; 93005; 96361; 96374; 99284; A9270; G0480; J2405; J3480; J7030; J7040; J7050; 99283

== ENCOUNTER 2017-11-24 11:16 | Emergency (ER) | payer MEDICARE, MEDICAID ==
[2017-11-24] MEDS ORDERED: Haloperidol Lactate 5 MG/ML SDV IVPUSH ONE ×3 (11:50→15:55)
[2017-11-24] MEDS ORDERED: Sodium Chloride 0.9% 10 ML Syringe FLUSH PRN (11:50)
[2017-11-24] MEDS ORDERED: diphenhydrAMINE 50 MG/ML SDV IVPUSH ONE ×2 (11:52→15:57)
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
[2017-11-24] MEDS ORDERED: Nitroglycerin 0.4 MG Tab.SL SL PRN (15:12)
[2017-11-24] MEDS ORDERED: Nicotine Polacrilex 2 MG Gum CHEW ONE (17:43)
[2017-11-25 07:19] VITALS: BP 157/106
== END 2017-11-25 08:00 ==
LOC: JP.ED 11:16
DX: F29 Unspecified psychosis not due to a substance or known physiological condition (principal); I10 Essential (primary) hypertension; J44.9 Chronic obstructive pulmonary disease, unspecified; F31.9 Bipolar disorder, unspecified; Z77.22 Contact with and (suspected) exposure to environmental tobacco smoke (acute) (chronic); Z79.899 Other long term (current) drug therapy; Z79.82 Long term (current) use of aspirin; Z88.1 Allergy status to other antibiotic agents; Z88.2 Allergy status to sulfonamides; Z88.8 Allergy status to other drugs, medicaments and biological substances
CPT/HCPCS: 36415; 80053; 80178; 80305; 81001; 84484; 85025; 93005; 96374; 96375; 96376; 99284; 99285; A9270; G0480; J1200; J1630; J7050; 93010

== ENCOUNTER 2018-03-21 09:38 | Emergency (ER) | payer MEDICARE, MEDICAID ==
[2018-03-21 10:19] VITALS: BP 172/94
[2018-03-21] MEDS ORDERED: Alum Hydrox/Mag Hydrox/Simeth 15 ML, Lidocaine 2% 15 ML PO ONE ×2 (11:08)
[2018-03-21] MEDS ORDERED: Famotidine 20 MG Tab PO ONE (11:33)
[2018-03-21] MEDS ORDERED: Sucralfate Suspension 1 GM/10 ML Cup PO ONE (11:53)
[2018-03-21] MEDS ORDERED: ClonazePAM 0.5 MG Tab PO ONE (13:43)
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
== END 2018-03-21 14:00 | disposition home or self-care (01) ==
LOC: JP.ED 09:38
DX: K31.89 Other diseases of stomach and duodenum (principal); F17.210 Nicotine dependence, cigarettes, uncomplicated; J44.9 Chronic obstructive pulmonary disease, unspecified; I10 Essential (primary) hypertension; Z79.899 Other long term (current) drug therapy; Z79.82 Long term (current) use of aspirin; Z88.1 Allergy status to other antibiotic agents; Z88.2 Allergy status to sulfonamides; Z88.8 Allergy status to other drugs, medicaments and biological substances
CPT/HCPCS: 36415; 80053; 80305; 81001; 82150; 83690; 85025; 86140; 99284; A9270

== ENCOUNTER 2018-05-09 05:54 | Emergency (ER) | payer MEDICARE, MEDICAID ==
[2018-05-09 06:14] VITALS: BP 134/99
[2018-05-09] MEDS ORDERED: Ketorolac 60 MG/2 ML SDV IM ONE (06:26)
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
== END 2018-05-09 06:54 | disposition home or self-care (01) ==
LOC: JP.ED 05:54
DX: M25.551 Pain in right hip (principal); F17.210 Nicotine dependence, cigarettes, uncomplicated; I10 Essential (primary) hypertension; J44.9 Chronic obstructive pulmonary disease, unspecified; Z79.899 Other long term (current) drug therapy; Z88.2 Allergy status to sulfonamides; Z88.1 Allergy status to other antibiotic agents; Z88.8 Allergy status to other drugs, medicaments and biological substances
CPT/HCPCS: 96372; 99283; J1885

== ENCOUNTER 2018-05-14 21:35 | Emergency (ER) | payer MEDICARE, MEDICAID ==
[2018-05-15 01:29] VITALS: BP 188/109
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
== END 2018-05-15 06:10 | disposition home or self-care (01) ==
LOC: JP.ED 21:35
DX: T65.91XA Toxic effect of unspecified substance, accidental (unintentional), initial encounter (principal); R47.81 Slurred speech; R53.83 Other fatigue; F17.210 Nicotine dependence, cigarettes, uncomplicated; I10 Essential (primary) hypertension; J44.9 Chronic obstructive pulmonary disease, unspecified; Z88.2 Allergy status to sulfonamides; Z88.8 Allergy status to other drugs, medicaments and biological substances; Z88.1 Allergy status to other antibiotic agents; Z79.899 Other long term (current) drug therapy
CPT/HCPCS: 36415; 80053; 80305; 81001; 85025; 99284; G0480

== ENCOUNTER 2018-05-16 11:10 | Emergency (ER) | payer MEDICARE, MEDICAID ==
[2018-05-16] MEDS ORDERED: Haloperidol Lactate 5 MG/ML SDV IM ONE (11:22)
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
[2018-05-16 13:32] VITALS: BP 156/92
[2018-05-16] MEDS ORDERED: diphenhydrAMINE 25 MG Cap PO ONE (13:50)
== END 2018-05-16 14:04 | disposition home or self-care (01) ==
LOC: JP.ED 11:10
DX: R45.851 Suicidal ideations (principal); R45.1 Restlessness and agitation; J44.9 Chronic obstructive pulmonary disease, unspecified; I10 Essential (primary) hypertension; F41.9 Anxiety disorder, unspecified; F31.9 Bipolar disorder, unspecified; Z79.899 Other long term (current) drug therapy; Z79.82 Long term (current) use of aspirin; Z88.1 Allergy status to other antibiotic agents; Z88.2 Allergy status to sulfonamides; Z88.8 Allergy status to other drugs, medicaments and biological substances
CPT/HCPCS: 36415; 80053; 80305; 81001; 85025; 96372; 99285; A9270; G0480; J1630

== ENCOUNTER 2018-12-05 08:46 | Emergency (ER) | payer MEDICARE, MEDICAID ==
[2018-12-05] MEDS ORDERED: Ketorolac 30 MG/ML SDV IM ONE (09:20)
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
--- NOTE | 2018-12-05 09:24 | CRLCR ---
INDICATION: Chest pain COMPARISON: Two view chest dated 10/26/2018 TECHNIQUE: Two view chest. FINDINGS: The lungs are clear. There is no evidence of pneumothorax. The heart, mediastinum and pulmonary vessels are of normal size. There is no evidence of pleural fluid. IMPRESSION: Negative chest. Dictated by Fredi Spears MD @ Dec 05 2018 9:22AM Signed by Dr. Fredi Spears @ Dec 05 2018 9:23AM
[2018-12-05 09:25] VITALS: BP 142/92
== END 2018-12-05 10:57 | disposition home or self-care (01) ==
LOC: JP.ED 08:46
DX: R07.89 Other chest pain (principal); J44.9 Chronic obstructive pulmonary disease, unspecified; F17.210 Nicotine dependence, cigarettes, uncomplicated; Z79.899 Other long term (current) drug therapy; Z88.2 Allergy status to sulfonamides
CPT/HCPCS: 36415; 71046; 80053; 84484; 85025; 96372; 99285; J1885

== ENCOUNTER 2019-01-13 23:54 | Emergency (ER) | payer MEDICARE, MEDICAID ==
[2019-01-14] MEDS ORDERED: Alum Hydrox/Mag Hydrox/Simeth 15 ML, Lidocaine 2% 15 ML PO ONE ×2 (00:52)
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
[2019-01-14] MEDS ORDERED: Sodium Chloride 0.9% 1,000 ML IV SCH ×2 (01:00→03:00)
[2019-01-14] MEDS ORDERED: HYDROmorphone 0.5 MG/0.5 ML Syringe IVPUSH ONE ×3 (01:47→06:54)
--- NOTE | 2019-01-14 02:21 | CRLCR ---
INDICATION: Chest and abdominal pain TECHNIQUE: Chest and Abdominal radiograph 4 views COMPARISON: None FINDINGS: CHEST: Mediastinum: The mediastinum is normal in appearance. The heart silhouette is normal in size and morphology. Lung: Both lungs are unremarkable in appearance. No sign of pleural effusion seen. No pneumothorax is identified. ABDOMEN: Bowel: [id number] gaseous distention of the colon is present to the level of the rectum. Soft tissue: No evidence of pneumoperitoneum present. No suspicious calcifications noted. Surgical clips are noted in the right upper quadrant from prior cholecystectomy. Bone: Unremarkable for age. IMPRESSION: 1. [id number] gaseous distention of the colon is present to the level of the rectum. This may be due to colonic ileus but evaluation with contrast enema may be helpful to exclude a distal colonic obstruction. Dictated by Ozzy Donnelly MD @ 01/14/2019 2:19:16 AM Dictated by: Ozzy Donnelly MD @ 01/14/2019 02:19:19 (Electronically Signed)
[2019-01-14] MEDS ORDERED: Iopamidol 612 MG/ML 100 ML Bottle IV PRN (03:45)
--- NOTE | 2019-01-14 04:16 | CRLCT ---
INDICATION: Mid abdominal pain TECHNIQUE: CT Abdomen and pelvis with i.v. contrast. Coronal and sagittal reformats were obtained. CONTRAST: 69 mL Isovue 300 COMPARISON: 11/1918 FINDINGS: Lower chest: Unremarkable. Liver: Unremarkable. Spleen: Unremarkable. Pancreas: Unremarkable. Gallbladder: Previous cholecystectomy noted with mild intra and extrahepatic biliary ductal dilatation present without significant change. Kidney: Unremarkable. No kidney or ureteral stones or obstruction seen. Adrenal: Unremarkable. Bowel: Large amount of low-density stool is present throughout the colon which may be due to chronic constipation. Mild wall thickening of the gastric antrum is present. The appendix is at the upper limits of normal in size, measuring 7-8 mm in diameter without wall thickening or surrounding inflammatory changes. Vascular: Unremarkable. Lymph: Unremarkable. Peritoneum: Unremarkable. No pneumoperitoneum is seen. Small amount of ascites is present and is likely physiologic in origin. Pelvis: Moderate bladder distention is noted. Soft tissue: Unremarkable. Bone: Unremarkable for age. IMPRESSIONS: 1. Large amount of low-density stool is present throughout the colon which may be due to chronic constipation. 2. Mild wall thickening of the gastric antrum is present. This may be due to gastritis or peptic ulcer disease and confirmation with barium GI series or endoscopy may be helpful. 3. The appendix is at the upper limits of normal in size, measuring 7-8 mm in diameter without wall thickening or surrounding inflammatory changes. This is indeterminate by imaging and clinical followup is recommended. Dictated by Ozzy Donnelly MD @ 01/14/2019 4:15:50 AM Please note that all CT scans at this facility use dose modulation, iterative reconstruction, and/or weight-based dosing when appropriate to reduce radiation dose to as low as reasonably achievable. Dictated by: Ozzy Donnelly MD @ 01/14/2019 04:15:52 (Electronically Signed)
[2019-01-14] MEDS ORDERED: cefTRIAXone 1 GM in Sodium Chloride 0.9% 50 ML IV ONE (04:24)
[2019-01-14] MEDS ORDERED: Pantoprazole 40 MG Vial IVPUSH ONE (04:25)
[2019-01-14] MEDS ORDERED: LORazepam 2 MG/ML SDV IVPUSH ONE (04:28)
[2019-01-14] MEDS ORDERED: Nicotine 21 MG/24 Hr Patch TRDERM SCH (07:00)
[2019-01-14] MEDS ORDERED: Nicotine 21 MG/24 Hr Patch TRDERM ONE (07:15)
[2019-01-14] MEDS ORDERED: Labetalol 20 MG/4 ML Syringe IVPUSH ONE (07:41)
[2019-01-14] MEDS ORDERED: Potassium Chloride 20 MEQ Tab.ER PO ONE (08:15)
[2019-01-14] MEDS ORDERED: Lisinopril 5 MG Tab PO ONE (08:44)
[2019-01-14] MEDS ORDERED: cloNIDine 0.1 MG Tab PO ONE (09:51)
[2019-01-14] MEDS ORDERED: Vancomycin 250 MG/5 ML ML Oral Solution PO SCH (10:00)
[2019-01-14 10:17] VITALS: BP 145/96
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
== END 2019-01-14 10:58 | disposition home or self-care (01) ==
LOC: JP.ED 23:54
DX: R19.7 Diarrhea, unspecified (principal); I10 Essential (primary) hypertension; J44.9 Chronic obstructive pulmonary disease, unspecified; F31.9 Bipolar disorder, unspecified; F41.9 Anxiety disorder, unspecified; Z79.899 Other long term (current) drug therapy; Z79.82 Long term (current) use of aspirin; Z88.1 Allergy status to other antibiotic agents; Z88.2 Allergy status to sulfonamides; Z88.8 Allergy status to other drugs, medicaments and biological substances
CPT/HCPCS: 36415; 74022; 74177; 80053; 81001; 83690; 84702; 85025; 86140; 87086; 87493; 96361; 96374; 96375; 96376; 99285; A9270; C9113; J0696; J1170; J2060; J3490; J7030; J7050; Q9967

== ENCOUNTER 2019-04-12 14:16 | Emergency (ER) | payer MEDICARE, MEDICAID ==
[2019-04-12 14:30] VITALS: BP 97/53
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
[2019-04-13] MEDS ORDERED: Zolpidem 5 MG Tab PO ONE (00:44)
[2019-04-13] MEDS ORDERED: Mirtazapine 15 MG Tab PO ONE (01:00)
[2019-04-13] MEDS ORDERED: ClonazePAM 1 MG Tab PO STA (02:07)
[2019-04-13] MEDS ORDERED: ClonazePAM 0.5 MG Tab PO ONE (09:57)
[2019-04-13] MEDS ORDERED: Mirtazapine 15 MG Tab PO SCH ×2 (21:00)
[2019-04-13] MEDS ORDERED: ClonazePAM 1 MG Tab PO SCH (21:00)
== END 2019-04-13 10:17 | disposition other institution (70) ==
LOC: JP.ED 14:16
DX: F15.10 Other stimulant abuse, uncomplicated (principal); F19.20 Other psychoactive substance dependence, uncomplicated; J44.9 Chronic obstructive pulmonary disease, unspecified; I10 Essential (primary) hypertension; F22 Delusional disorders; I25.10 Atherosclerotic heart disease of native coronary artery without angina pectoris
CPT/HCPCS: 36415; 80048; 80305; 81001; 81025; 84443; 85027; 99285; A9270; G0480

== ENCOUNTER 2020-06-24 07:07 | Day surgery (SDC) | payer MEDICARE, MEDICAID ==
[2020-06-24] MEDS ORDERED: Dextrose 5%-Lactated Ringers 1,000 ML IV SCH ×2 (07:30)
[2020-06-24] MEDS ORDERED: fentaNYL 100 MCG/2 ML SDV ONE (07:56)
[2020-06-24] MEDS ORDERED: Propofol 200 MG/20 ML SDV ONE (07:57)
[2020-06-24] MEDS ORDERED: Glycopyrrolate 0.2 MG/ML 2 ML SDV IVPUSH ONE (08:15)
[2020-06-24] MEDS ORDERED: Azithromycin 250 MG Tab PO ONE (10:03)
[2020-06-24 12:13] VITALS: BP 148/87; PULSE 84
--- NOTE | 2020-07-01 16:41 | OR ---
DATE OF PROCEDURE: 06/24/2020 SURGEON: Gerson Milton MD PREOPERATIVE DIAGNOSIS: Epigastric pain. POSTOPERATIVE DIAGNOSIS: Epigastric pain associated with large gastric bezoar and mild diffuse gastritis. OPERATIVE PROCEDURE: Esophagogastroduodenoscopy with antral biopsies for CLOtest. ANESTHESIA: IV sedation. INDICATION FOR PROCEDURE: This is a 45-year-old female presenting with some ongoing epigastric pain. The plan is to proceed with upper GI endoscopy with biopsies and/or dilation as indicated. Potential risks including bleeding and perforation were discussed, and the patient wishes to proceed. DETAILS OF PROCEDURE: The patient was taken to the operating room and placed in a left lateral decubitus position. IV sedation was administered, after which the upper GI endoscope was passed orally through the length of the esophagus into the stomach with retroflexion view of the fundus, and thereafter through the pyloric channel into the proximal duodenum. Findings included normal hypopharynx, larynx, and upper esophageal sphincter. A small hiatal hernia was present, but no significant inflammation or upward extension of the gastroesophageal junction mucosal line was noted at the EG junction. The striking finding was that of a very large gastric bezoar containing all vegetable matter and other undigested food within the stomach associated with mild diffuse gastritis likely related to irritation of the gastric bezoar to the [place] of the stomach. The pyloric channel and duodenum to the junction of the 3rd and 4th portions were unremarkable. Biopsies were obtained from the antrum and sent for CLOtest for H pylori. Minimal bleeding from the biopsy site was seen, and the procedure was then concluded. The patient is presently on Pepcid and Carafate for treatment of gastritis. significant degree of gastroparesis and at this point, we will give her a test dose of Zithromax 125 mg orally in the ACU. She does have erythromycin allergy, but I suspect this is more of a GI intolerance. Assuming she is able to tolerate that, we will start her on Zithromax 125 mg daily long-term. We will have dietary see her regarding anti-bezoar diet and then proceed with a followup endoscopy in roughly 4 weeks to see the effectiveness of the anti-bezoar diet and Zithromax. Gerson Milton MD /[id number]
== END 2020-06-24 11:10 | disposition home or self-care (01) ==
LOC: JP.SDS 07:07
PROVIDERS: ATTEND Surgery
DX: K29.70 Gastritis, unspecified, without bleeding (principal); T18.2XXA Foreign body in stomach, initial encounter; I10 Essential (primary) hypertension; F17.200 Nicotine dependence, unspecified, uncomplicated; F31.9 Bipolar disorder, unspecified
CPT/HCPCS: 43239; 87081; A9270; J2704; J3010; J3490; J7121

== ENCOUNTER 2020-07-13 14:35 | Observation (INO) | payer MEDICARE, MEDICAID ==
[2020-07-13] MEDS ORDERED: Ondansetron 4 MG/2 ML SDV IVPUSH ONE (14:40)
[2020-07-13] MEDS ORDERED: Sodium Chloride 0.9% 1,000 ML IV SCH ×2 (14:45→15:30)
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
[2020-07-13] MEDS ORDERED: chlorproMAZINE 25 MG Tab PO PRN (18:01)
[2020-07-13] MEDS ORDERED: Polyethylene Glycol 3350 Powder 17 GM Packet PO PRN (18:01)
[2020-07-13] MEDS ORDERED: Melatonin 3 MG Tab PO PRN ×2 (18:01→21:28)
[2020-07-13] MEDS ORDERED: Promethazine 6.25 MG in Sodium Chloride 0.9% 50 ML IV PRN (18:01)
[2020-07-13] MEDS ORDERED: Acetaminophen 325 MG Tab PO PRN (18:01)
[2020-07-13] MEDS ORDERED: Sodium Chloride 0.9% 10 ML Syringe FLUSH PRN (18:01)
[2020-07-13] MEDS: Pantoprazole 40 MG Vial IV SCH (18:29)
[2020-07-13] MEDS: Sodium Chloride 0.9% 1,000 ML IV SCH (18:30)
[2020-07-13] MEDS: Benztropine 1 MG Tab PO SCH (20:58)
[2020-07-13] MEDS: Docusate Sodium 100 MG Cap PO SCH (20:58)
[2020-07-13] MEDS: busPIRone 5 MG Tab PO SCH (20:59)
[2020-07-13] MEDS: Sucralfate 1 GM Tab PO SCH (20:59)
[2020-07-13] MEDS ORDERED: Topiramate 100 MG Tab PO SCH (21:00)
[2020-07-13] MEDS ORDERED: Famotidine 20 MG Tab PO SCH (21:00)
[2020-07-13] MEDS ORDERED: Mirtazapine 15 MG Tab PO SCH (21:00)
[2020-07-13] MEDS ORDERED: SULINDAC 150 MG PO SCH (21:00)
[2020-07-13] MEDS ORDERED: atorvaSTATin 20 MG Tab PO SCH (21:00)
[2020-07-13] MEDS ORDERED: Enoxaparin 40 MG/0.4 ML Syringe SUBCUT SCH (21:00)
[2020-07-13] MEDS ORDERED: Pramipexole 0.25 MG Tab PO SCH (21:00)
[2020-07-13] MEDS ORDERED: cloNIDine 0.1 MG Tab PO PRN (21:28)
[2020-07-13] MEDS ORDERED: Gabapentin 300 MG Cap PO SCH (22:00)
[2020-07-14] MEDS: Pantoprazole 40 MG Vial IV SCH (05:03)
[2020-07-14] MEDS: Sucralfate 1 GM Tab PO SCH ×2 (05:03→09:25)
[2020-07-14] MEDS ORDERED: Hydroxychloroquine 200 MG Tab PO SCH (07:30)
[2020-07-14] MEDS: Sodium Chloride 0.9% 1,000 ML IV SCH (07:59)
[2020-07-14] MEDS ORDERED: ARIPiprazole 10 MG Tab PO SCH (09:00)
[2020-07-14] MEDS ORDERED: Gabapentin 300 MG Cap PO SCH ×3 (09:00→21:00)
[2020-07-14] MEDS ORDERED: Loratadine 10 MG Tab PO SCH (09:00)
[2020-07-14] MEDS ORDERED: Tamsulosin 0.4 MG Cap.ER PO SCH (09:00)
[2020-07-14] MEDS ORDERED: Clopidogrel 75 MG Tab PO SCH (09:00)
[2020-07-14] MEDS ORDERED: Topiramate 25 MG Tab PO SCH (09:00)
[2020-07-14] MEDS ORDERED: Aspirin 81 MG Tab.Chew PO SCH (09:00)
[2020-07-14] MEDS: Benztropine 1 MG Tab PO SCH (09:23)
[2020-07-14] MEDS: busPIRone 5 MG Tab PO SCH (09:23)
[2020-07-14] MEDS: Docusate Sodium 100 MG Cap PO SCH (09:24)
[2020-07-14 11:11] VITALS: BP 150/82; PULSE 58
--- NOTE | 2020-07-14 12:34 | PCM.DCSUM1 ---
Discharge Summary - Hospital Course Brief History: 45-year-old female who presented with nausea vomiting and mild diarrhea. She was admitted for management of presumed gastroenteritis with mild dehydration. Diagnosis: Stroke: No - Discharge Data Discharge Date: 07/14/20 Discharge Disposition: Home, Self-Care 01 Condition: Good - Referral to Home Health Primary Care Physician: PCP None - Discharge Diagnosis/Problem(s) (1) Viral gastroenteritis SNOMED Code(s): 886969450 ICD Code: A08.4 - VIRAL INTESTINAL INFECTION, UNSPECIFIED Status: Acute - Patient Summary/Data Hospital Course: Laura presented to the emergency room with nausea, vomiting and very mild diarrhea. Work-up in the emergency room was fairly unremarkable but patient continued to have nausea so she was admitted for additional hydration and symp tomatic management. Overnight following admission there were no acute issues. She has not had significant nausea. She has tolerated regular diet with no vomiting. She has had a couple small episodes of diarrhea but no abdominal pain. She has not had any fevers. Labs remain normal. She feels well enough to go home at this time. I suspect she had a mild case of viral gastroenteritis. She did have sick contacts with similar symptoms. She seems to be doing well and can maintain her hydration without IV supplementation at this time. She will be discharged home with close clinical follow-up if symptoms do not continue to improve. - Patient Instructions Diet: Regular Diet as Tolerated (soft, bland and boring for a few days) Activity: As Tolerated Showering/Bathing: May Shower Notify Provider of: Fever, Increased Pain Other/Special Instructions: 1. You were in the hospital for management of viral gastroenteritis. Your symptoms have improved with IV fluids and symptomatic management. No additional specific treatment is needed at this time. It is important that you drink plenty of fluids such as water or Gatorade to stay hydrated. Your goal should be 64 ounces of fluid each day. I would recommend a soft, bland and boring diet for the next several days as your stomach and digestive tract recover. 2. Please continue your usual home medications as previously prescribed. 3. Continue to drink the Coca-Cola twice daily until your follow-up with Dr. Milton on the 22 of July - Discharge Plan *PRESCRIPTION DRUG MONITORING PROGRAM REVIEWED*: Not Applicable *COPY OF PRESCRIPTION DRUG MONITORING REPORT IN PATIENT [place]: Not Applicable Home Medications: Home Meds Gabapentin [Neurontin] 300 mg PO QID 07/22/15 [History] Tamsulosin HCl 0.4 mg PO DAILY 07/22/15 [History] Aspirin 81 mg PO DAILY 11/17/17 [History] Linaclotide [Linzess] 145 mcg PO DAILY 11/17/17 [History] Sucralfate [Carafate] 1 gm PO QID 11/17/17 [History] atorvaSTATin [Lipitor] 40 mg PO DAILY 11/17/17 [History] tiZANidine [Zanaflex] 4 mg PO TID PRN 11/17/17 [History] Hydroxychloroquine [Plaquenil] 200 mg PO ACBREAKFAST 11/21/17 [History] Clopidogrel [Plavix] 75 mg PO DAILY 03/21/18 [History] Sulindac 150 mg PO BID 03/21/18 [History] Topiramate [Topamax] 50 mg PO TID 05/14/18 [History] ARIPiprazole [Abilify] 5 mg PO QAM 08/24/18 [History] Benztropine [Cogentin] 1 mg PO BID 08/24/18 [History] Mirtazapine [Remeron] 7.5 mg PO BEDTIME 04/12/19 [History] cloNIDine [Catapres] 0.1 mg PO BID PRN 04/12/19 [History] Melatonin 10 mg PO BEDTIME PRN 04/13/19 [History] Promethazine [Phenergan] 25 mg PO Q8H PRN 04/13/19 [History] Ramelteon [Rozerem] 8 mg PO BEDTIME PRN 04/13/19 [History] polyethylene glycoL 3350 [MiraLAX] 17 gm PO DAILY PRN 04/13/19 [History] Docusate Sodium [Stool Softener] 100 mg PO BID 06/20/20 [History] Loratadine [Claritin] 10 mg PO DAILY 06/20/20 [History] Multivitamin with Minerals [Multiple Vitamin] 1 tab PO DAILY 06/20/20 [History] Pramipexole Di-HCl [Mirapex] 0.25 mg PO BEDTIME 06/20/20 [History] chlorproMAZINE [Thorazine] 25 mg PO BID PRN 06/20/20 [History] guaiFENesin [Robitussin] 100 mg PO Q6H PRN 06/20/20 [History] hydrOXYzine pamoate [Hydroxyzine Pamoate] 25 - 50 mg PO TID PRN 06/20/20 [History] Acetaminophen [Acetaminophen Extra Strength] 1,000 mg PO Q6H PRN 06/24/20 [History] Bismuth Subsalicylate [Pepto Bismol] 30 ml PO Q4H PRN 06/24/20 [History] Famotidine 20 mg PO BID 06/24/20 [History] Magnesium Hydroxide [Milk of Magnesia] 30 mg PO DAILY PRN 06/24/20 [History] busPIRone [Buspar] 5 mg PO TID 06/24/20 [History] guaiFENesin [Mucinex] 600 mg PO BID PRN 06/24/20 [History] Oxygen Therapy Mode: Room Air Patient Handouts: Viral Gastroenteritis, Adult Referrals: PCP,None [Primary Care Provider] - (f/u with your primary care as needed if your symptoms do not continue to improve or if they get worse) - Discharge Summary/Plan Comment DC Time >30 min.: No - Patient Data Vitals - Most Recent: Last Vital Signs Temp 36.8 C 07/14/20 11:09 Pulse 58 L 07/14/20 11:09 Resp 12 07/14/20 11:09 BP 150/82 H 07/14/20 11:09 Pulse Ox 100 07/14/20 11:09 Weight - Most Recent: 53.07 kg I&O - Last 24 hours: Intake & Output 07/13/20 07/14/20 07/14/20 22:59 06:59 14:59 Intake Total 1057 170 Balance 1057 170 Lab Results - Last 24 hrs: Laboratory Results - last 24 hr 07/13/20 07/13/20 07/13/20 Range/Units 14:53 14:53 15:38 WBC 9.2 (4.5-11.0) K/uL RBC 4.90 (3.30-5.50) M/uL Hgb 14.0 (12.0-15.0) g/dL Hct 42.1 (36.0-48.0) % MCV 86 (80-98) fL MCH 29 (27-31) pg MCHC 33 (32-36) % Plt Count 199 (150-400) K/uL Neut % (Auto) 86 H (36-66) % Lymph % (Auto) 10 L (24-44) % Wallace % (Auto) 4 (2-6) % Eos % (Auto) 0 L (2-4) % Baso % (Auto) 0 (0-1) % Sodium 142 (140-148) mmol/L Potassium 3.7 (3.6-5.2) mmol/L Chloride 106 (100-108) mmol/L Carbon Dioxide 19 L (21-32) mmol/L Anion Gap 20.7 H (5.0-14.0) mmol/L BUN 19 H (7-18) mg/dL Creatinine 1.0 (0.6-1.0) mg/dL Est Cr Clr Drug Dosing 51.57 mL/min Estimated GFR (MDRD) > 60 (>60) Glucose 87 (74-106) mg/dL Calcium 9.3 (8.5-10.1) mg/dL Total Bilirubin 0.5 (0.2-1.0) mg/dL AST 40 H (15-37) U/L ALT 43 (12-78) U/L Alkaline Phosphatase 189 H (46-116) U/L Total Protein 7.1 (6.4-8.2) g/dL Albumin 3.9 (3.4-5.0) g/dL Globulin 3.2 (2.3-3.5) g/dL Albumin/Globulin Ratio 1.2 (1.2-2.2) Urine Color Yellow (YELLOW) Urine Appearance Clear (CLEAR) Urine pH 6.5 (5.0-8.0) Ur Specific [place] >= 1.030 (1.008-1.030) Urine Protein Negative (NEGATIVE) mg/dL Urine Glucose (UA) Negative (NEGATIVE) mg/dL Urine Ketones 80 H (NEGATIVE) mg/dL Urine Occult Blood Negative (NEGATIVE) Urine Nitrite Negative (NEGATIVE) Urine Bilirubin Small H (NEGATIVE) Urine Urobilinogen 1.0 (0.2-1.0) EU/dL Ur Leukocyte Esterase Negative (NEGATIVE) Urine RBC 0-5 (0-5) Urine WBC 0-5 (0-5) Ur Epithelial Cells Rare Amorphous Sediment Not seen Urine Bacteria Rare Urine Mucus Moderate Urine Opiates Screen (NEGATIVE) Ur Oxycodone Screen (NEGATIVE) Urine Methadone Screen (NEGATIVE) Ur Propoxyphene Screen (NEGATIVE) Ur Barbiturates Screen (NEGATIVE) Ur Tricyclics Screen (NEGATIVE) Ur Phencyclidine Scrn (NEGATIVE) Ur Amphetamine Screen (NEGATIVE) U Methamphetamines Scrn (NEGATIVE) Urine MDMA Screen (NEGATIVE) U Benzodiazepines Scrn (NEGATIVE) U Cocaine Metab Screen (NEGATIVE) U Marijuana (THC) Screen (NEGATIVE) SARS-CoV-2 RNA (SARAH) (NEGATIVE) 07/13/20 07/13/20 07/14/20 Range/Units 15:38 16:20 05:11 WBC 6.4 (4.5-11.0) K/uL RBC 3.97 (3.30-5.50) M/uL Hgb 11.3 L D (12.0-15.0) g/dL Hct 34.5 L (36.0-48.0) % MCV 87 (80-98) fL MCH 29 (27-31) pg MCHC 33 (32-36) % Plt Count 159 (150-400) K/uL Neut % (Auto) (36-66) % Lymph % (Auto) (24-44) % Wallace % (Auto) (2-6) % Eos % (Auto) (2-4) % Baso % (Auto) (0-1) % Sodium (140-148) mmol/L Potassium (3.6-5.2) mmol/L Chloride (100-108) mmol/L Carbon Dioxide (21-32) mmol/L Anion Gap (5.0-14.0) mmol/L BUN (7-18) mg/dL Creatinine (0.6-1.0) mg/dL Est Cr Clr Drug Dosing mL/min Estimated GFR (MDRD) (>60) Glucose (74-106) mg/dL Calcium (8.5-10.1) mg/dL Total Bilirubin (0.2-1.0) mg/dL AST (15-37) U/L ALT (12-78) U/L Alkaline Phosphatase (46-116) U/L Total Protein (6.4-8.2) g/dL Albumin (3.4-5.0) g/dL Globulin (2.3-3.5) g/dL Albumin/Globulin Ratio (1.2-2.2) Urine Color (YELLOW) Urine Appearance (CLEAR) Urine pH (5.0-8.0) Ur Specific [place] (1.008-1.030) Urine Protein (NEGATIVE) mg/dL Urine Glucose (UA) (NEGATIVE) mg/dL Urine Ketones (NEGATIVE) mg/dL Urine Occult Blood (NEGATIVE) Urine Nitrite (NEGATIVE) Urine Bilirubin (NEGATIVE) Urine Urobilinogen (0.2-1.0) EU/dL Ur Leukocyte Esterase (NEGATIVE) Urine RBC (0-5) Urine WBC (0-5) Ur Epithelial Cells Amorphous Sediment Urine Bacteria Urine Mucus Urine Opiates Screen Negative (NEGATIVE) Ur Oxycodone Screen Negative (NEGATIVE) Urine Methadone Screen Negative (NEGATIVE) Ur Propoxyphene Screen Negative (NEGATIVE) Ur Barbiturates Screen Negative (NEGATIVE) Ur Tricyclics Screen Negative (NEGATIVE) Ur Phencyclidine Scrn Negative (NEGATIVE) Ur Amphetamine Screen Negative (NEGATIVE) U Methamphetamines Scrn Negative (NEGATIVE) Urine MDMA Screen Negative (NEGATIVE) U Benzodiazepines Scrn Presumptive positive H (NEGATIVE) U Cocaine Metab Screen Negative (NEGATIVE) U Marijuana (THC) Screen Presumptive positive H (NEGATIVE) SARS-CoV-2 RNA (SARAH) Negative (NEGATIVE) 07/14/20 Range/Units 06:00 WBC (4.5-11.0) K/uL RBC (3.30-5.50) M/uL Hgb (12.0-15.0) g/dL Hct (36.0-48.0) % MCV (80-98) fL MCH (27-31) pg MCHC (32-36) % Plt Count (150-400) K/uL Neut % (Auto) (36-66) % Lymph % (Auto) (24-44) % Wallace % (Auto) (2-6) % Eos % (Auto) (2-4) % Baso % (Auto) (0-1) % Sodium 141 (140-148) mmol/L Potassium 3.8 (3.6-5.2) mmol/L Chloride 111 H (100-108) mmol/L Carbon Dioxide 18 L (21-32) mmol/L Anion Gap 15.8 H (5.0-14.0) mmol/L BUN 17 (7-18) mg/dL Creatinine 0.9 (0.6-1.0) mg/dL Est Cr Clr Drug Dosing 57.30 mL/min Estimated GFR (MDRD) > 60 (>60) Glucose 75 (74-106) mg/dL Calcium 8.0 L (8.5-10.1) mg/dL Total Bilirubin (0.2-1.0) mg/dL AST (15-37) U/L ALT (12-78) U/L Alkaline Phosphatase (46-116) U/L Total Protein (6.4-8.2) g/dL Albumin (3.4-5.0) g/dL Globulin (2.3-3.5) g/dL Albumin/Globulin Ratio (1.2-2.2) Urine Color (YELLOW) Urine Appearance (CLEAR) Urine pH (5.0-8.0) Ur Specific [place] (1.008-1.030) Urine Protein (NEGATIVE) mg/dL Urine Glucose (UA) (NEGATIVE) mg/dL Urine Ketones (NEGATIVE) mg/dL Urine Occult Blood (NEGATIVE) Urine Nitrite (NEGATIVE) Urine Bilirubin (NEGATIVE) Urine Urobilinogen (0.2-1.0) EU/dL Ur Leukocyte Esterase (NEGATIVE) Urine RBC (0-5) Urine WBC (0-5) Ur Epithelial Cells Amorphous Sediment Urine Bacteria Urine Mucus Urine Opiates Screen (NEGATIVE) Ur Oxycodone Screen (NEGATIVE) Urine Methadone Screen (NEGATIVE) Ur Propoxyphene Screen (NEGATIVE) Ur Barbiturates Screen (NEGATIVE) Ur Tricyclics Screen (NEGATIVE) Ur Phencyclidine Scrn (NEGATIVE) Ur Amphetamine Screen (NEGATIVE) U Methamphetamines Scrn (NEGATIVE) Urine MDMA Screen (NEGATIVE) U Benzodiazepines Scrn (NEGATIVE) U Cocaine Metab Screen (NEGATIVE) U Marijuana (THC) Screen (NEGATIVE) SARS-CoV-2 RNA (SARAH) (NEGATIVE) GRISEL Results - Last 24 hrs: Microbiology 07/13/20 16:20 Influenza Type A Antigen Screen - Final Nasal Aspirate, Left NEGATIVE INFLUENZA A VIRUS AG REFERENCE RANGE: NEGATIVE Influenza Type B Antigen Screen - Final NEGATIVE INFLUENZA B VIRUS AG REFERENCE RANGE: NEGATIVE Med Orders - Current: Current Medications Acetaminophen (Tylenol) 650 mg PO Q4H PRN PRN Reason: Pain (Mild 1-3)/fever Aripiprazole (Abilify) 5 mg PO QAM [facility] Last Admin: 07/14/20 09:23 Dose: 5 mg Documented by: Aspirin (Aspirin) 81 mg PO DAILY [facility] Last Admin: 07/14/20 09:23 Dose: 81 mg Documented by: Atorvastatin Calcium (Lipitor) 40 mg PO BEDTIME [facility] Last Admin: 07/13/20 20:57 Dose: 40 mg Documented by: Benztropine Mesylate (Cogentin) 1 mg PO BID [facility] Last Admin: 07/14/20 09:23 Dose: 1 mg Documented by: Buspirone HCl (Buspar) 5 mg PO TID [facility] Last Admin: 07/14/20 09:23 Dose: 5 mg Documented by: Chlorpromazine HCl (Thorazine) 25 mg PO BID PRN PRN Reason: Anxiety Clonidine HCl (Catapres) 0.1 mg PO BID PRN PRN Reason: Anxiety Last Admin: 07/13/20 22:02 Dose: 0.1 mg Documented by: Clopidogrel Bisulfate (Plavix) 75 mg PO DAILY [facility] Last Admin: 07/14/20 09:24 Dose: 75 mg Documented by: Docusate Sodium (Colace) 100 mg PO BID [facility] Last Admin: 07/14/20 09:24 Dose: 100 mg Documented by: Enoxaparin Sodium (Lovenox) 40 mg SUBCUT BEDTIME [facility] Last Admin: 07/13/20 20:57 Dose: 40 mg Documented by: Famotidine (Pepcid) 20 mg PO BID [facility] Gabapentin (Neurontin) 300 mg PO 0900 [facility] Last Admin: 07/14/20 09:24 Dose: 300 mg Documented by: Gabapentin (Neurontin) 600 mg PO BEDTIME [facility] Gabapentin (Neurontin) 600 mg PO 1200 [facility] Last Admin: 07/14/20 11:37 Dose: 600 mg Documented by: Hydroxychloroquine Sulfate (Plaquenil) 200 mg PO ACBREAKFAST [facility] Last Admin: 07/14/20 07:56 Dose: 200 mg Documented by: Sodium Chloride (Normal Saline) 1,000 mls @ 75 mls/hr IV ASDIRECTED [facility] Last Admin: 07/14/20 07:59 Dose: 75 mls/hr Documented by: Promethazine HCl 6.25 mg/ (Sodium Chloride) 50.25 mls @ 200 mls/hr IV Q6H PRN PRN Reason: Nausea/Vomiting Last Admin: 07/14/20 10:01 Dose: 200 mls/hr Documented by: Linaclotide (Linzess) 145 mcg PO DAILY [facility] Last Admin: 07/14/20 09:24 Dose: 145 mcg Documented by: Loratadine (Claritin) 10 mg PO DAILY [facility] Last Admin: 07/14/20 09:23 Dose: 10 mg Documented by: Melatonin (Melatonin) 9 mg PO BEDTIME PRN PRN Reason: Sleep Last Admin: 07/13/20 22:02 Dose: 9 mg Documented by: Mirtazapine (Remeron) 7.5 mg PO BEDTIME [facility] Last Admin: 07/13/20 20:58 Dose: 7.5 mg Documented by: Sulindac [Sulindac] (150mg) 150 mg PO BID [facility] Pantoprazole Sodium (Protonix Iv) 40 mg IV Q12H [facility] Last Admin: 07/14/20 05:03 Dose: 40 mg Documented by: Polyethylene Glycol (Miralax) 17 gm PO DAILY PRN PRN Reason: Constipation Pramipexole Dihydrochloride (Mirapex) 0.25 mg PO BEDTIME [facility] Last Admin: 07/13/20 20:59 Dose: 0.25 mg Documented by: Senna/Docusate Sodium (Senna Plus) 1 tab PO BID PRN PRN Reason: Constipation Sodium Chloride (Saline Flush) 10 ml FLUSH ASDIRECTED PRN PRN Reason: Keep Vein Open Sucralfate (Carafate) 1 gm PO QID [facility] Last Admin: 07/14/20 09:25 Dose: 1 gm Documented by: Tamsulosin HCl (Flomax) 0.4 mg PO DAILY [facility] Last Admin: 07/14/20 09:24 Dose: 0.4 mg Documented by: Topiramate (Topamax) 50 mg PO TID [facility] Last Admin: 07/14/20 09:24 Dose: 50 mg Documented by: Discontinued Medications Gabapentin (Neurontin) 300 mg PO QID [facility] Sodium Chloride (Normal Saline) 1,000 mls @ 999 mls/hr IV ASDIRECTED [facility] Last Admin: 07/13/20 14:54 Dose: 999 mls/hr Documented by: Sodium Chloride (Normal Saline) 1,000 mls @ 999 mls/hr IV ASDIRECTED [facility] Last Admin: 07/13/20 16:13 Dose: 999 mls/hr Documented by: Melatonin (Melatonin) 10 mg PO BEDTIME PRN PRN Reason: Sleep Ondansetron HCl (Zofran) 4 mg IVPUSH ONETIME ONE Stop: 07/13/20 14:41 Last Admin: 07/13/20 14:54 Dose: 4 mg Documented by: Topiramate (Topamax) 50 mg PO TID [facility] Last Admin: 07/13/20 20:58 Dose: 50 mg Documented by:
== END 2020-07-14 13:25 | disposition home or self-care (01) ==
LOC: JP.ED 14:35 → JP.MS 16:43
PROVIDERS: ADMIT Hospitalist; ATTEND Internal Medicine
DX: A08.4 Viral intestinal infection, unspecified (principal); I10 Essential (primary) hypertension; R52 Pain, unspecified; J44.9 Chronic obstructive pulmonary disease, unspecified; F41.9 Anxiety disorder, unspecified; F31.9 Bipolar disorder, unspecified; F17.210 Nicotine dependence, cigarettes, uncomplicated; Z20.828 Contact with and (suspected) exposure to other viral communicable diseases; E86.0 Dehydration; Z88.0 Allergy status to penicillin; Z88.1 Allergy status to other antibiotic agents; Z88.8 Allergy status to other drugs, medicaments and biological substances; Z88.2 Allergy status to sulfonamides; Z88.5 Allergy status to narcotic agent; Z79.899 Other long term (current) drug therapy
CPT/HCPCS: 36415; 80048; 80053; 80305; 81001; 85025; 85027; 87804; 96361; 96372; 96374; 96375; 96376; 99285; A9270; C9113; G0378; J1650; J2405; J2550; J7030; J7050; U0002; 99217; 99219

== ENCOUNTER 2020-07-22 08:29 | Day surgery (SDC) | payer MEDICARE, MEDICAID ==
[~2020-07-22 08:29] MED LIST: Midazolam 1 MG/ML 2 ML SDV ONE; Propofol 200 MG/20 ML SDV ONE; fentaNYL 100 MCG/2 ML SDV ONE
[2020-07-22] MEDS ORDERED: Dextrose 5%-Lactated Ringers 1,000 ML IV SCH (09:30)
[2020-07-22 11:39] VITALS: BP 89/57; PULSE 56
--- NOTE | 2020-07-28 13:08 | OR ---
DATE OF PROCEDURE: 07/22/2020 SURGEON: Gerson Milton MD PREOPERATIVE DIAGNOSIS: History of large gastric bezoar. POSTOPERATIVE DIAGNOSES: Mild diffuse gastritis, but with absence of remaining bezoar. OPERATIVE PROCEDURE: Esophagogastroduodenoscopy with antral biopsies for CLOtest. ANESTHESIA: IV sedation. INDICATIONS FOR PROCEDURE: This is a 45-year-old female presenting for followup endoscopy. Roughly a month ago, the patient was noted to have quite a bit in the way of upper abdominal discomfort and a sense of bloating, and at that time, was noted to have a large gastric bezoar. The patient was instructed and encouraged to take an anti-bezoar diet and given a course of Zithromax to augment gastric emptying. Presently, she is on Carafate, but no other medications collected at the esophagus or stomach. Generally, she is feeling somewhat better than she was previously. Plan is to proceed with followup endoscopy with biopsies as indicated. Potential risks including bleeding and perforation were discussed, and the patient wishes to proceed. DETAILS OF PROCEDURE: The patient was taken to the operating room and placed in a left lateral decubitus position. IV sedation was administered after which the upper GI endoscope was passed orally through the length of the esophagus into the stomach with retroflexion view of the fundus, and thereafter, through the pyloric channel to the junction of the third and fourth portions of the duodenum. Findings included normal hypopharynx, larynx, upper esophageal sphincter, and esophageal body. At the EG junction, no significant inflammation was noted. Perhaps a small hiatal hernia was present, but this was otherwise unremarkable. Within the stomach, there was a small amount of retained bile. There was mild diffuse redness in the stomach, more toward the distal aspect of the stomach, but without erosions or ulcers. Of note, there was no remaining bezoar present, i.e., this was entirely cleared, and the pylorus and proximal duodenum were unremarkable. At this point, biopsies were obtained from the antrum and sent for CLOtest to recheck the H pylori status. Minimal bleeding from the biopsy site was seen, and the procedure was then concluded. The patient was taken to the recovery room in satisfactory condition. The plan at this point will be to continue the anti-bezoar diet and current medications. Followup will be with Theodora Frank MD, as needed. Gerson Milton MD /[id number]
== END 2020-07-22 11:40 | disposition home or self-care (01) ==
LOC: JP.SDS 08:29
PROVIDERS: ATTEND Surgery
DX: K29.70 Gastritis, unspecified, without bleeding (principal); I10 Essential (primary) hypertension; Z88.8 Allergy status to other drugs, medicaments and biological substances; Z87.19 Personal history of other diseases of the digestive system
CPT/HCPCS: 43239; 81025; 87081; J2250; J2704; J3010; J7121

== ENCOUNTER 2020-10-29 03:14 | Emergency (ER) | payer MEDICARE, MEDICAID ==
[2020-10-29 03:25] VITALS: BP 114/87; PULSE 58
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
[2020-10-29] MEDS ORDERED: Cephalexin 250 MG Cap PO ONE (04:52)
== END 2020-10-29 07:51 | disposition home or self-care (01) ==
LOC: JP.ED 03:14
DX: N30.01 Acute cystitis with hematuria (principal); R41.0 Disorientation, unspecified; F31.9 Bipolar disorder, unspecified; R53.83 Other fatigue; F15.20 Other stimulant dependence, uncomplicated; F12.20 Cannabis dependence, uncomplicated; I25.10 Atherosclerotic heart disease of native coronary artery without angina pectoris; I10 Essential (primary) hypertension; J44.9 Chronic obstructive pulmonary disease, unspecified; M19.90 Unspecified osteoarthritis, unspecified site; F41.9 Anxiety disorder, unspecified; F17.210 Nicotine dependence, cigarettes, uncomplicated; Z88.8 Allergy status to other drugs, medicaments and biological substances; Z88.0 Allergy status to penicillin; Z88.1 Allergy status to other antibiotic agents; Z88.2 Allergy status to sulfonamides; Z91.048 Other nonmedicinal substance allergy status; Z79.82 Long term (current) use of aspirin; Z79.899 Other long term (current) drug therapy
CPT/HCPCS: 36415; 80053; 80305; 80307; 81003; 85025; 85610; 85730; 99285; A9270

== ENCOUNTER 2020-12-13 07:26 | Emergency (ER) | payer MEDICARE, MEDICAID ==
[2020-12-13 07:35] VITALS: BP 123/87; PULSE 60
[2020-12-13] MEDS ORDERED: Lidocaine 1% 20 ML MDV INJECT ONE (07:53)
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
[2020-12-13] MEDS ORDERED: Bacitracin Oint 1 GM U/D Packet TOP ONE (08:31)
[2020-12-13] MEDS ORDERED: Bacitracin Oint 28.35 GM Tube TOP SCH (09:00)
== END 2020-12-13 08:54 | disposition home or self-care (01) ==
LOC: JP.ED 07:26
DX: S51.812A Laceration without foreign body of left forearm, initial encounter (principal); I25.10 Atherosclerotic heart disease of native coronary artery without angina pectoris; I10 Essential (primary) hypertension; J43.9 Emphysema, unspecified; M19.90 Unspecified osteoarthritis, unspecified site; E11.42 Type 2 diabetes mellitus with diabetic polyneuropathy; Z86.73 Personal history of transient ischemic attack (TIA), and cerebral infarction without residual deficits; Z72.0 Tobacco use; Z88.8 Allergy status to other drugs, medicaments and biological substances; Z88.0 Allergy status to penicillin; Z88.1 Allergy status to other antibiotic agents; Z88.2 Allergy status to sulfonamides; Z91.048 Other nonmedicinal substance allergy status; Z79.82 Long term (current) use of aspirin; Z79.02 Long term (current) use of antithrombotics/antiplatelets; Z79.899 Other long term (current) drug therapy; W26.0XXA Contact with knife, initial encounter
CPT/HCPCS: 12002; 12032; 99282; 99283-25

== ENCOUNTER 2021-03-14 11:44 | Emergency (ER) | payer MEDICARE, MEDICAID ==
[2021-03-14 11:49] VITALS: BP 121/74; PULSE 55
[2021-03-14] MEDS ORDERED: Glycerin 2.1 GM Supp RECTAL ONE (12:38)
[2021-03-14] MEDS ORDERED: Polyethylene Glycol 3350 Powder 17 GM Packet PO ONE (12:38)
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
[2021-03-14] MEDS ORDERED: Ondansetron 4 MG Tab.DIS PO ONE (12:44)
== END 2021-03-14 16:00 | disposition home or self-care (01) ==
LOC: JP.ED 11:44
DX: K59.01 Slow transit constipation (principal); I25.10 Atherosclerotic heart disease of native coronary artery without angina pectoris; I10 Essential (primary) hypertension; J44.9 Chronic obstructive pulmonary disease, unspecified; M19.90 Unspecified osteoarthritis, unspecified site; G62.9 Polyneuropathy, unspecified; Z86.73 Personal history of transient ischemic attack (TIA), and cerebral infarction without residual deficits; Z88.8 Allergy status to other drugs, medicaments and biological substances; Z88.0 Allergy status to penicillin; Z88.2 Allergy status to sulfonamides; Z91.048 Other nonmedicinal substance allergy status; Z79.82 Long term (current) use of aspirin; Z79.02 Long term (current) use of antithrombotics/antiplatelets; Z79.899 Other long term (current) drug therapy; Z72.0 Tobacco use
CPT/HCPCS: 99284; A9270

== ENCOUNTER 2021-04-29 14:52 | Emergency (ER) | payer MEDICARE, MEDICAID ==
[2021-04-29 15:08] VITALS: BP 121/81; PULSE 84
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
[2021-04-29] MEDS ORDERED: OLANZapine 10 MG Vial IM ONE (18:26)
[2021-04-29] MEDS ORDERED: cloNIDine 0.1 MG Tab PO ONE (19:46)
[2021-04-29] MEDS ORDERED: LORazepam 2 MG/ML SDV IM ONE (23:17)
[2021-04-30] MEDS ORDERED: LORazepam 2 MG/ML SDV ONE (02:05)
[2021-04-30] MEDS ORDERED: LORazepam 2 MG/ML SDV IM ONE (06:53)
== END 2021-04-30 08:08 ==
LOC: JP.ED 14:52
DX: F41.9 Anxiety disorder, unspecified (principal); F15.10 Other stimulant abuse, uncomplicated; F31.9 Bipolar disorder, unspecified; I25.10 Atherosclerotic heart disease of native coronary artery without angina pectoris; I10 Essential (primary) hypertension; K21.9 Gastro-esophageal reflux disease without esophagitis; J43.9 Emphysema, unspecified; M19.90 Unspecified osteoarthritis, unspecified site; Z87.891 Personal history of nicotine dependence; Z88.8 Allergy status to other drugs, medicaments and biological substances; Z88.0 Allergy status to penicillin; Z88.1 Allergy status to other antibiotic agents; Z88.2 Allergy status to sulfonamides; Z91.048 Other nonmedicinal substance allergy status; Z79.82 Long term (current) use of aspirin; Z79.02 Long term (current) use of antithrombotics/antiplatelets; Z79.899 Other long term (current) drug therapy
CPT/HCPCS: 36415; 80053; 80305; 80307; 81001; 85025; 96372; 99285; A9270; J2060; J3490

== ENCOUNTER 2021-05-21 10:30 | Emergency (ER) | payer MEDICARE, MEDICAID ==
[2021-05-21 10:49] VITALS: BP 142/100; PULSE 72
[2021-05-21] MEDS ORDERED: diphenhydrAMINE 25 MG/10 ML Cup PO ONE (11:00)
[2021-05-21] MEDS ORDERED: Meclizine 25 MG Tab PO ONE (11:01)
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
== END 2021-05-21 12:07 | disposition home or self-care (01) ==
LOC: JP.ED 10:30
DX: J30.89 Other allergic rhinitis (principal); H81.20 Vestibular neuronitis, unspecified ear; I25.10 Atherosclerotic heart disease of native coronary artery without angina pectoris; I10 Essential (primary) hypertension; J43.9 Emphysema, unspecified; M19.90 Unspecified osteoarthritis, unspecified site; Z86.73 Personal history of transient ischemic attack (TIA), and cerebral infarction without residual deficits; Z72.0 Tobacco use; Z88.8 Allergy status to other drugs, medicaments and biological substances; Z88.0 Allergy status to penicillin; Z88.1 Allergy status to other antibiotic agents; Z88.2 Allergy status to sulfonamides; Z91.048 Other nonmedicinal substance allergy status; Z79.82 Long term (current) use of aspirin; Z79.02 Long term (current) use of antithrombotics/antiplatelets; Z79.899 Other long term (current) drug therapy
CPT/HCPCS: 99283; A9270

== ENCOUNTER 2021-07-06 22:10 | Emergency (ER) | payer MEDICARE, MEDICAID ==
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
[2021-07-06 22:44] VITALS: BP 132/87; PULSE 74
[2021-07-06] MEDS: Ketorolac 30 MG/ML SDV IM ONE (22:56)
--- NOTE | 2021-07-06 23:03 | CRLCT ---
For Patients: As a result of the Century Cures Act, medical imaging exams and procedure reports are released immediately into your electronic medical record. You may view this report before your referring provider. If you have questions, please contact your health care provider. INDICATION: Headaches. COMPARISON: 05/24/2018. TECHNIQUE: Noncontrast CT of the head. FINDINGS: Normal brain parenchymal morphology. Focal area of low attenuation of the right frontal lobe consistent with old infarct. No acute intracranial hemorrhage, acute infarct, mass effect, or fracture. No midline shift. No abnormal ventricular dilatation. Normal calvarium and skull base. Visualized paranasal sinuses and mastoid air cells are clear. Soft tissue density/cerumen within the left external auditory canal. Normal orbits bilaterally. IMPRESSION: 1. No acute intracranial abnormality. 2. Normal brain parenchymal morphology. Old infarct right frontal lobe. Please note that all CT scans at this facility use dose modulation, iterative reconstruction, and/or weight-based dosing when appropriate to reduce radiation dose to as low as reasonably achievable. Dictated by Kevin Britton MD @ 07/06/2021 11:02:23 PM (Electronically Signed)
== END 2021-07-06 23:11 | disposition home or self-care (01) ==
LOC: JP.ED 22:10
DX: S09.90XA Unspecified injury of head, initial encounter (principal); F07.81 Postconcussional syndrome; G44.309 Post-traumatic headache, unspecified, not intractable; I25.10 Atherosclerotic heart disease of native coronary artery without angina pectoris; I10 Essential (primary) hypertension; J44.9 Chronic obstructive pulmonary disease, unspecified; K21.9 Gastro-esophageal reflux disease without esophagitis; Z86.73 Personal history of transient ischemic attack (TIA), and cerebral infarction without residual deficits; Z88.0 Allergy status to penicillin; Z88.1 Allergy status to other antibiotic agents; Z88.2 Allergy status to sulfonamides; Z91.09 Other allergy status, other than to drugs and biological substances; Z91.048 Other nonmedicinal substance allergy status; Z88.4 Allergy status to anesthetic agent; Z79.82 Long term (current) use of aspirin; Z79.899 Other long term (current) drug therapy; Z79.02 Long term (current) use of antithrombotics/antiplatelets; W10.9XXA Fall (on) (from) unspecified stairs and steps, initial encounter
CPT/HCPCS: 70450; 96372; 99283-25; J1885

== ENCOUNTER 2021-08-12 08:46 | Emergency (ER) | payer MEDICARE, MEDICAID ==
[2021-08-12 08:54] VITALS: BP 159/109; PULSE 85
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
== END 2021-08-12 13:47 | disposition home or self-care (01) ==
LOC: JP.ED 08:46
DX: R45.1 Restlessness and agitation (principal); F15.10 Other stimulant abuse, uncomplicated; I25.10 Atherosclerotic heart disease of native coronary artery without angina pectoris; I10 Essential (primary) hypertension; J43.9 Emphysema, unspecified; M19.90 Unspecified osteoarthritis, unspecified site; Z88.8 Allergy status to other drugs, medicaments and biological substances; Z88.0 Allergy status to penicillin; Z88.1 Allergy status to other antibiotic agents; Z88.2 Allergy status to sulfonamides; Z91.048 Other nonmedicinal substance allergy status; Z79.82 Long term (current) use of aspirin; Z79.2 Long term (current) use of antibiotics; Z79.899 Other long term (current) drug therapy; Z20.822 Contact with and (suspected) exposure to COVID-19
CPT/HCPCS: 80305; 81001; 99285; U0002

== ENCOUNTER 2021-08-15 02:01 | Emergency (ER) | payer MEDICARE, MEDICAID ==
[2021-08-15 02:19] VITALS: BP 129/60; PULSE 47
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
[2021-08-15] MEDS ORDERED: Magnesium Citrate Solution 296 ML Bottle PO ONE (02:52)
--- NOTE | 2021-08-15 03:03 | CRLCR ---
For Patients: As a result of the Cures Act, medical imaging exams and procedure reports are released immediately into your electronic medical record. You may view this report before your referring provider. If you have questions, please contact your health care provider. INDICATION: Left lower quadrant pain TECHNIQUE: Abdomen/Pelvis radiograph 2 views COMPARISON: 03/12/2021 FINDINGS: Bowel: A moderate to large amount of stool is present in the rectosigmoid colon. Soft tissue: No evidence of pneumoperitoneum present. No suspicious calcifications noted. Surgical clips are noted in the right upper quadrant from prior cholecystectomy. Bone: Unremarkable for age. IMPRESSION: 1. Unremarkable appearance of the visualized abdomen. Dictated by Ozzy Donnelly MD @ 08/15/2021 3:02:31 AM Dictated by: Ozzy Donnelly MD @ 08/15/2021 03:02:36 (Electronically Signed)
== END 2021-08-15 03:16 | disposition home or self-care (01) ==
LOC: JP.ED 02:01
DX: K59.01 Slow transit constipation (principal); I25.10 Atherosclerotic heart disease of native coronary artery without angina pectoris; Z88.0 Allergy status to penicillin; Z88.8 Allergy status to other drugs, medicaments and biological substances; Z88.1 Allergy status to other antibiotic agents; Z88.2 Allergy status to sulfonamides; Z79.82 Long term (current) use of aspirin; Z79.899 Other long term (current) drug therapy; Z79.02 Long term (current) use of antithrombotics/antiplatelets; Z86.73 Personal history of transient ischemic attack (TIA), and cerebral infarction without residual deficits
CPT/HCPCS: 74019; 99284; A9270

== ENCOUNTER 2021-08-28 12:07 | Emergency (ER) | payer MEDICARE, MEDICAID ==
[2021-08-28 12:32] VITALS: BP 152/81; PULSE 83
[2021-08-28 13:32] LABS: CORONAVIRUS COVID-19 NAA NEGATIVE (NEGATIVE)
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
--- NOTE | 2021-08-28 14:34 | CR ---
Abdomen 1V Upright CLINICAL HISTORY: Pain FINDINGS: No free air is identified. There are scattered air-filled loops of small bowel in a nonspecific pattern. There is gas and feces throughout the colon. There is IMPRESSION: Gaseous distention in a nonspecific pattern
== END 2021-08-28 15:57 | disposition home or self-care (01) ==
LOC: JP.ED 12:07
DX: R14.0 Abdominal distension (gaseous) (principal); E78.00 Pure hypercholesterolemia, unspecified; I10 Essential (primary) hypertension; J44.9 Chronic obstructive pulmonary disease, unspecified; I25.10 Atherosclerotic heart disease of native coronary artery without angina pectoris; Z72.0 Tobacco use; Z86.73 Personal history of transient ischemic attack (TIA), and cerebral infarction without residual deficits; Z88.0 Allergy status to penicillin; Z88.8 Allergy status to other drugs, medicaments and biological substances; Z88.1 Allergy status to other antibiotic agents; Z88.2 Allergy status to sulfonamides; Z91.048 Other nonmedicinal substance allergy status; Z79.82 Long term (current) use of aspirin; Z79.899 Other long term (current) drug therapy; Z20.822 Contact with and (suspected) exposure to COVID-19
CPT/HCPCS: 0241U; 74018; 99284

== ENCOUNTER 2021-09-08 08:15 | Emergency (ER) | payer MEDICARE, MEDICAID ==
[2021-09-08] MEDS ORDERED: Thiamine 100 MG Tab PO ONE (09:47)
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
[2021-09-08 12:11] VITALS: BP 102/62; PULSE 62
== END 2021-09-08 12:10 | disposition other institution (70) ==
LOC: JP.ED 08:15
DX: F12.90 Cannabis use, unspecified, uncomplicated (principal); I25.10 Atherosclerotic heart disease of native coronary artery without angina pectoris; I10 Essential (primary) hypertension; J44.9 Chronic obstructive pulmonary disease, unspecified; Z72.0 Tobacco use; Z86.73 Personal history of transient ischemic attack (TIA), and cerebral infarction without residual deficits; Z88.0 Allergy status to penicillin; Z88.8 Allergy status to other drugs, medicaments and biological substances; Z88.2 Allergy status to sulfonamides; Z88.1 Allergy status to other antibiotic agents; Z91.048 Other nonmedicinal substance allergy status; Z79.82 Long term (current) use of aspirin; Z79.899 Other long term (current) drug therapy; Z20.822 Contact with and (suspected) exposure to COVID-19
CPT/HCPCS: 36415; 80053; 80305; 80307; 81001; 85027; 93005; 99284; A9270; U0002